=== PATIENT | female | born 1995 | race Caucasian/White ===

== ENCOUNTER 2016-10-15 15:19 | Emergency (ER) | payer OTHER ==
[2016-10-15 15:33] VITALS: BP 161/106; PULSE 117; TEMP 99.1; BMI 44.4
[2016-10-15] MEDS ORDERED: ALBUTEROL SO4 2.5/IPRATROPIUM 0.5 INH SOL 3 ML VIAL.NEB. NEB ONE ×2 (16:10→16:24)
[2016-10-15] MEDS ORDERED: IBUPROFEN 400 MG TABLET (FP) PO ONE ×2 (16:24→16:29)
[2016-10-15] MEDS ORDERED: predniSONE 20 MG TABLET (UD) PO ONE (16:24)
[2016-10-15] MEDS ORDERED: predniSONE 20 MG TABLET (UD) ONE (16:29)
--- NOTE | 2016-10-15 16:38 | PDOC ---
History of Present Illness - General Chief Complaint: Asthma Stated Complaint: ASTHMA ATTACK Time Seen by Provider: 10/15/16 16:17 History Source: Patient Exam Limitations: No Limitations - History of Present Illness Initial Comments: 10/15/16 16:27 21 yr female history of asthma no intubations or hospitalizations presents with cough for one week, nasal congestion. no abd pain no fever. Pt using nebulizer at home. Severity: reports: moderate Possible Cause: Yes: occasional episodes Associated Symptoms: reports: cough, nasal congestion Past History - Past Medical History Allergies/Adverse Reactions: Allergies Allergy/AdvReac Type Severity Reaction Status Date / Time ciprofloxacin [From Cipro] Allergy Severe Hives Verified 10/15/16 15:26 ciprofloxacin HCl Allergy Severe Hives Verified 10/15/16 15:26 [From Cipro] Penicillins Allergy Severe Verified 10/15/16 15:26 Home Medications: Ambulatory Orders Albuterol Sulfate Inhaler - [Ventolin Hfa Inhaler -] 1 - 2 inh PO Q4H #1 inhaler 10/15/16 Azithromycin [Zithromax 250mg Tablets -] 250 mg PO UTDICT #6 tab 10/15/16 Prednisone [Deltasone -] 40 mg PO DAILY #10 tablet 10/15/16 Asthma: Yes Psychiatric Problems: Yes (ANXIETY) Suicide Attempt (Hx): No Other medical history: obesity - Reproductive History (#): 2 Para: 0 Cervical CA: No Dysfunctional Uterine Bleeding: No Ectopic : No Endometrial CA: No Polycystic Ovaries: No Therapeutic (s) & number: Yes (1) Tubal Ligation: No Spontaneous : 0 - Immunization History Immunization Up to Date: Yes - Psycho/Social/Smoking Cessation Hx Anxiety: Yes Suicidal Ideation: No Smoking Status: No Smoking History: Never smoked Have you smoked in the past 12 months: No Hx Alcohol Use: No Substance Use Type: None Hx Substance Use Treatment: No Respiratory Specific PMHX - Complaint Specific PMHX Angina: No Bronchitis: Yes Review of Systems - Review of Systems Able to Perform ROS?: Yes Is the patient limited Thai proficient: No Constitutional: No: Symptoms Reported HEENTM: Yes: See HPI Respiratory: Yes: See HPI *Physical Exam - Vital Signs Last Vital Signs Temp Pulse Resp BP Pulse Ox 99.1 F 117 H 25 H 161/106 98 10/15/16 15:26 10/15/16 15:26 10/15/16 15:26 10/15/16 15:26 10/15/16 15:26 - Physical Exam General Appearance: Yes: Nourished, Appropriately Dressed HEENT: positive: EOMI, JANEL, Normal ENT Inspection, TMs Normal, Pharynx Normal, Nasal Congestion Neck: positive: Supple Respiratory/Chest: positive: Chest Tender, Normal Breath Sounds, Wheezing Cardiovascular: positive: Regular Rhythm, Regular Rate Gastrointestinal/Abdominal: positive: Normal Bowel Sounds, Soft Musculoskeletal: positive: Normal Inspection Extremity: positive: Normal Capillary Refill, Normal Inspection, Normal Range of Motion Integumentary: positive: Normal Color, Dry, Warm ED Treatment Course - Medications Given in the ED: ED Medications Discontinued Medications Generic Name Dose Route Start Last Admin Trade Name Gloria PRN Reason Stop Dose Admin Albuterol/Ipratropium 1 amp 10/15/16 16:10 10/15/16 16:10 Duoneb - NEB 10/15/16 16:11 1 amp NOW ONE Administration Medical Decision Making - Medical Decision Making 10/15/16 16:39 cc: cough, wheezing, nasal congestion afebrile, speaking full sentences anxious will give prednisone, duoneb, albuterol inhaler 10/15/16 18:44 pt improved, CXR is negative vitals stable BP 128/78 left arm *DC/Admit/Observation/Transfer Diagnosis at time of Disposition: Asthma attack, Bronchitis - Discharge Dispostion Disposition: HOME Condition at time of disposition: Improved - Prescriptions Prescriptions: Prednisone [Deltasone -] 40 mg PO DAILY #10 tablet Albuterol Sulfate Inhaler - [Ventolin Hfa Inhaler -] 1 - 2 inh PO Q4H #1 inhaler Azithromycin [Zithromax 250mg Tablets -] 250 mg PO UTDICT #6 tab - Patient Instructions Additional Instructions: drink pleanty of fluids and rest use your inhaler as directed next dose of prednisone tomorrow morning take the Zpack as directed take motrin for pain follow with your doctor Tomorrow or Wednesday Return to ER if worse
== END 2016-10-15 18:51 | disposition home or self-care (01) ==
LOC: JER 15:19 → JERFT 15:19
PROC: 3E0F7GC Introduction of Other Therapeutic Substance into Respiratory Tract, Via Natural or Artificial Opening (ICD-10-PCS; principal; 2016-10-15)
DX: J45.901 Unspecified asthma with (acute) exacerbation (principal); F41.9 Anxiety disorder, unspecified; E66.01 Morbid (severe) obesity due to excess calories; Z68.41 Body mass index [BMI] 40.0-44.9, adult
CPT/HCPCS: 71020-TC; 84703; 99281-25

== ENCOUNTER 2017-08-29 12:48 | Emergency (ER) | payer OTHER ==
--- NOTE | 2017-08-29 12:57 | PDOC ---
History of Present Illness - General Chief Complaint: Asthma Stated Complaint: ASTHMA Time Seen by Provider: 08/29/17 12:57 - History of Present Illness Initial Comments: 08/29/17 13:04 Ms. Aguirre is a 22 yo female w/ pmh of Asthma who presents c/o a 1 day history of difficulty breathing. She reports it was slow in onset and that she had initially tried her rescue inhaler and home nebulizer for treatment last night with little effect. She presents because her boyfriend convinced her to call 911 as she was still symptomatic today. She denies any pain, fever, chills, or sick contacts. She currently has a headache she associates w/ her asthma attacks. EMS reports giving 2 breathing treatments and 10 IM Dexamethasone while en route to the hospital. The patient denies chest pain and dizziness. Denies fever, chills, nausea, vomit , diarrhea and constipation. Denies dysuria, frequency, urgency and hematuria. Allergies: Penicillins 08/29/17 13:13 Past History - Past Medical History Allergies/Adverse Reactions: Allergies Allergy/AdvReac Type Severity Reaction Status Date / Time ciprofloxacin [From Cipro] Allergy Severe Hives Verified 08/29/17 12:56 ciprofloxacin HCl Allergy Severe Hives Verified 08/29/17 12:56 [From Cipro] Penicillins Allergy Severe Verified 08/29/17 12:56 Home Medications: Ambulatory Orders Albuterol Sulfate Inhaler - [Ventolin Hfa Inhaler -] 1 - 2 inh PO Q4H #1 inhaler 10/15/16 Albuterol 0.083% Nebulizer Ritika [Ventolin 0.083% Nebulizer Soln -] 1 amp NEB PRN 08/29/17 Prednisone 40 mg PO DAILY #16 tablet 08/29/17 Prednisone [Deltasone -] 0 mg PO DAILY 08/29/17 Asthma: Yes Psychiatric Problems: Yes (ANXIETY) - Reproductive History (#): 2 Para: 0 Cervical CA: No Dysfunctional Uterine Bleeding: No Ectopic : No Endometrial CA: No Polycystic Ovaries: No Therapeutic (s) & number: Yes (1) Tubal Ligation: No Spontaneous : 0 - Immunization History Immunization Up to Date: Yes - Suicide/Smoking/Psychosocial Hx Smoking Status: No Smoking History: Never smoked Have you smoked in the past 12 months: No Hx Alcohol Use: No Substance Use Type: None Hx Substance Use Treatment: No Review of Systems - Review of Systems Comments:: 08/29/17 13:11 GENERAL/CONSTITUTIONAL: No fever or chills. No weakness. HEAD, EYES, EARS, NOSE AND THROAT: No change in vision. No ear pain or discharge. No sore throat. CARDIOVASCULAR: No chest pain or shortness of breath RESPIRATORY: +Cough and wheezing for the last 24 hours GASTROINTESTINAL: No nausea, vomiting, diarrhea or constipation. GENITOURINARY: No dysuria, frequency, or change in urination. MUSCULOSKELETAL: No joint or muscle swelling or pain. No neck or back pain. SKIN: No rash NEUROLOGIC: No headache, vertigo, loss of consciousness, or change in strength/ sensation. ENDOCRINE: No increased thirst. No abnormal weight change HEMATOLOGIC/LYMPHATIC: No anemia, easy bleeding, or history of blood clots. ALLERGIC/IMMUNOLOGIC: +Eczema on arms *Physical Exam - Physical Exam Comments: 08/29/17 13:12 GENERAL: +Significant work of breathing observed on presentation. Awake, alert, and fully oriented HEAD: No signs of trauma, normocephalic, atraumatic EYES: PERRLA, EOMI, sclera anicteric, conjunctiva clear ENT: Auricles normal inspection, hearing grossly normal, nares patent, oropharynx clear without exudates. Moist mucosa NECK: Normal ROM, supple, no lymphadenopathy, JVD, or masses LUNGS: +Diffuse wheezes noted, patient breathing quickly. HEART: Regular rate and rhythm, normal S1 and S2, no murmurs, rubs or gallops, peripheral pulses normal and equal bilaterally. ABDOMEN: Soft, nontender, normoactive bowel sounds. No guarding, no rebound. No masses EXTREMITIES: Normal inspection, Normal range of motion, no edema. No clubbing or cyanosis. NEUROLOGICAL: Cranial nerves II through XII grossly intact. Normal speech, normal gait, no focal sensorimotor deficits SKIN: Warm, Dry, normal turgor, no rashes or lesions noted. ED Treatment Course - LABORATORY CBC & Chemistry Diagram: 08/29/17 13:50 08/29/17 13:50 Medical Decision Making - Medical Decision Making 08/29/17 13:14 Patient presents with acute asthma exacerbation. Given EMS IM administration of dexamethosone, order for IV Solumedrol canceled. Will treat with mag and duo nebs and observe for improvement. 08/29/17 16:13 Patient wheezing resolved on re-exam, patient peak flow increased to 325. Patient feeling much improved and able to ambulate without difficulty. Would like to go home. Will discharge with instructions to follow-up with PCP in 2 days. Will also proscribe prednisone for asthma exacerbation. *DC/Admit/Observation/Transfer Diagnosis at time of Disposition: Asthma exacerbation Qualifiers: Asthma severity: unspecified severity Asthma persistence: unspecified Qualified Code(s): J45.901 - Unspecified asthma with (acute) exacerbation - Discharge Dispostion Disposition: HOME - Referrals - Patient Instructions Printed Discharge Instructions: Asthma -- Adult Additional Instructions: Please return if any increase shortness of breath, pain, fever, or other concerning symptoms. - Post Discharge Activity
[2017-08-29] MEDS ORDERED: methylPREDNISolone NA SUCC 125 MG/2 ML VIAL IVPUSH ONE (12:58)
[2017-08-29] MEDS ORDERED: ONDANSETRON 4 MG/2 ML VIAL IVPUSH ONE (12:58)
[2017-08-29] MEDS ORDERED: MAGNESIUM SULF 50% (8.12 MEQ/2 ML-1 GM VIAL) IVPB ONE (13:04)
[2017-08-29 13:05] VITALS: BMI 52.4
[2017-08-29] MEDS ORDERED: ALBUTEROL SO4 2.5/IPRATROPIUM 0.5 INH SOL 3 ML VIAL.NEB. NEB ONE ×2 (13:29→14:49)
[2017-08-29] MEDS ORDERED: ONDANSETRON 4 MG/2 ML VIAL ONE (13:29)
[2017-08-29] MEDS ORDERED: MAGNESIUM SULF 50% (8.12 MEQ/2 ML-1 GM VIAL) ONE (13:29)
[2017-08-29] MEDS: ALBUTEROL SO4 2.5/IPRATROPIUM 0.5 INH SOL 3 ML VIAL.NEB. NEB SCH ×4 (13:35→14:51)
[2017-08-29] MEDS ORDERED: SODIUM CHLORIDE 1,000 ML IV STA (14:10)
[2017-08-29 14:12] LABS: BASOPHIL 0.7 % (0-2.0); EOSINOPHIL 0.6 % (0-4.5); MCH 26.6 pg (25.7-33.7); MEAN CELL VOLUME 83.1 fl (80-96); MEAN PLT VOLUME 7.9 fl (7.5-11.1); NEUTROPHILS 82.8 % (42.8-82.8); PLATELET COUNT 402 K/MM3 (134-434); RDW 14.7 % (11.6-15.6); WHITE BLOOD COUNT 13.2 K/mm3 (4.0-10.0)
[2017-08-29 14:33] LABS: ALBUMIN 3.8 g/dl (3.4-5.0); ALK PHOS 98 U/L (45-117); ANION GAP 7 (8-16); BILIRUBIN,TOTAL 0.2 mg/dL (0.2-1.0); CALCIUM 8.8 mg/dL (8.5-10.1); CO2 27 mmol/L (21-32); CREATININE 0.7 mg/dL (0.55-1.02); GLUCOSE,RANDOM 126 mg/dL (74-106); SGOT/AST 21 U/L (15-37); SGPT/ALT 33 U/L (12-78); TOT PROT 7.5 g/dl (6.4-8.2)
--- NOTE | 2017-08-29 14:59 | PDOC ---
Attending Attestation - Resident Resident Name: Lalo López - ED Attending Attestation I have performed the following: I have examined & evaluated the patient, The case was reviewed & discussed with the resident, I agree w/resident's findings & plan, Exceptions are as noted - HPI HPI: 08/29/17 14:57 22-year-old female with a history of asthma exacerbations in many years here today complaining of shortness breath cough and wheezing. Patient states her symptoms started a few days ago became worse today she did use albuterol at home and then became nauseous and threw up following. No complaints of abdominal pain no fevers chills no cough productive of phlegm was seen by EMS and given Decadron, DuoNeb 2 with some improvement. No prior ICU or intubations - Physicial Exam PE: 08/29/17 14:58 Awake alert no acute distress lungs are with wheezing bilaterally on expiration but normal effort no retractions no excessive muscle use abdomen is soft nontender. Skin is warm and dry extremities are without edema no calf pain - Medical Decision Making 08/29/17 14:58 Asthma exacerbation vomiting likely related to albuterol use plan serial nebs labs IV hydration and antiemetics will reassess for possible admission versus observation versus home
[2017-08-29 15:00] VITALS: TEMP 97.4
[2017-08-29 15:24] LABS: URINE APPEARANCE CLOUDY; URINE BILIRUBIN NEGATIVE (NEGATIVE); URINE BLOOD NEGATIVE (NEGATIVE); URINE COLOR YELLOW; URINE GLUCOSE (UA) NEGATIVE (NEGATIVE); URINE KETONE NEGATIVE (NEGATIVE); URINE LEUK ESTERASE NEGATIVE (NEGATIVE); URINE NITRITE NEGATIVE (NEGATIVE); URINE PROTEIN NEGATIVE (NEGATIVE); URINE UROBILINOGEN NEGATIVE mg/dL (0.2-1.0)
[2017-08-29 16:50] VITALS: BP 129/71; PULSE 115
[2017-08-29 20:58] LABS: URINE LEUK ESTERASE NEGATIVE (NEGATIVE)
== END 2017-08-29 16:49 | disposition home or self-care (01) ==
LOC: JER 12:48
PROC: 3E0F7GC Introduction of Other Therapeutic Substance into Respiratory Tract, Via Natural or Artificial Opening (ICD-10-PCS; principal; 2017-08-29)
PROC: 3E033GC Introduction of Other Therapeutic Substance into Peripheral Vein, Percutaneous Approach (ICD-10-PCS; 2017-08-29)
PROC: 3E0337Z Introduction of Electrolytic and Water Balance Substance into Peripheral Vein, Percutaneous Approach (ICD-10-PCS; 2017-08-29)
DX: J45.901 Unspecified asthma with (acute) exacerbation (principal)
CPT/HCPCS: 36415; 80053; 81003; 84703; 85025; 99283-25

== ENCOUNTER 2017-11-22 17:12 | Emergency (ER) | payer OTHER ==
[2017-11-22 17:25] VITALS: BP 143/85; PULSE 129; TEMP 99; BMI 45.4
--- NOTE | 2017-11-22 17:25 | PDOC ---
Rapid Medical Evaluation Time Seen by Provider: 11/22/17 17:20 Medical Evaluation: Allergies Allergy/AdvReac Type Severity Reaction Status Date / Time ciprofloxacin [From Cipro] Allergy Severe Hives Verified 11/22/17 17:20 ciprofloxacin HCl Allergy Severe Hives Verified 11/22/17 17:20 [From Cipro] Penicillins Allergy Severe Verified 11/22/17 17:20 11/22/17 17:21 I have performed a brief in-person evaluation of this patient. The patient presents with a chief complaint of shortness of breath since yesterday, with productive cough. States bringing up yellowish phelgm. States using her nebulizer 7 times since then and recently completed prednisone 2-3 weeks ago. Denies fever or chills Pertinent physical exam findings NAD speech clear lungs with expiratory wheezing heart s1s2 I have ordered the following: peak flow, duoneb urine hcg The patient will proceed to the ED for further evaluation.
[2017-11-22] MEDS ORDERED: ALBUTEROL SO4 2.5/IPRATROPIUM 0.5 INH SOL 3 ML VIAL.NEB. NEB ONE ×3 (17:26→19:01)
[2017-11-22] MEDS ORDERED: predniSONE 20 MG TABLET (UD) PO ONE (17:54)
--- NOTE | 2017-11-22 17:54 | PDOC ---
History of Present Illness - General Chief Complaint: Asthma Stated Complaint: ASTHMA Time Seen by Provider: 11/22/17 17:20 History Source: Patient Exam Limitations: No Limitations - History of Present Illness Initial Comments: CHIEF COMPLAINT: 22 y/o afebrile female with PMH asthma and eczema (prior hospitalizations but no intubations) c/o worsening asthma symptoms since yesterday. HISTORY OF PRESENT ILLNESS: The patient states she's been using her albuterol nebulizer about 10 times per day since yesterday with little relief. She also admits to productive cough of yellow sputum. She denies f/c, n/v/d, CP, abd pain, back pain, hematuria, dysuria. Vital signs on arrival are notable for pulse of 129 with O2 sat of 95% on RA. REVIEW OF SYSTEMS: GENERAL/CONSTITUTIONAL: No fever/chills. No weakness. No weight change. HEAD, EYES, EARS, NOSE AND THROAT: No change in vision. No ear pain or discharge. No sore throat. CARDIOVASCULAR: +SOB. No chest pain. RESPIRATORY: +productive cough and wheezing. No hemoptysis. GASTROINTESTINAL: No abd pain, nausea, vomiting, diarrhea. GENITOURINARY: No dysuria, frequency, or change in urination. MUSCULOSKELETAL: No joint or muscle swelling or pain. No neck or back pain. SKIN: No rash or easy bruising. NEUROLOGIC: No headache, vertigo, loss of consciousness, or loss of sensation. PHYSICAL EXAM: GENERAL: The patient is awake, alert, and fully oriented, in no acute distress. She is well appearing and ambulatory and can speak in full sentences. HEAD: Normal with no signs of trauma. ENT: Pupils equal, round and reactive to light, extraocular movements intact, sclera anicteric, conjunctiva clear. Neck supple. LUNGS: Diffuse tight expiratory wheezing across all lung bui. . Normal excursion. No respiratory distress or use of accessory muscles. CV: RRR, S1/S2, no MRG. Cap refill < 2 sec. ABDOMEN: Soft, non-distended, non-tender even to deep palpation, no hepatomegaly or splenomegaly, no masses. EXTREMITIES: Normal range of motion, no edema. NEUROLOGICAL: Normal speech, normal gait. CN II-XII grossly intact. PSYCH: Normal mood, normal affect. SKIN: Warm, dry, normal turgor, no rashes or lesions noted. Past History - Past Medical History Allergies/Adverse Reactions: Allergies Allergy/AdvReac Type Severity Reaction Status Date / Time ciprofloxacin [From Cipro] Allergy Severe Hives Verified 11/22/17 17:20 ciprofloxacin HCl Allergy Severe Hives Verified 11/22/17 17:20 [From Cipro] Penicillins Allergy Severe Verified 11/22/17 17:20 Home Medications: Ambulatory Orders Methylprednisolone [Medrol Dose Martin] 4 mg PO ASDIR #21 tablet 11/22/17 Asthma: Yes COPD: No Psychiatric Problems: Yes (ANXIETY) Other medical history: ECZEMA - Reproductive History (#): 2 Para: 0 Cervical CA: No Dysfunctional Uterine Bleeding: No Ectopic : No Endometrial CA: No Polycystic Ovaries: No Therapeutic (s) & number: Yes (1) Tubal Ligation: No Spontaneous : 0 - Immunization History Immunization Up to Date: Yes - Suicide/Smoking/Psychosocial Hx Smoking Status: No Smoking History: Never smoked Have you smoked in the past 12 months: No Hx Alcohol Use: No Drug/Substance Use Hx: No Substance Use Type: None Hx Substance Use Treatment: No Respiratory Specific PMHX - Complaint Specific PMHX Angina: No Bronchitis: Yes *Physical Exam - Vital Signs Last Vital Signs Temp Pulse Resp BP Pulse Ox 99 F 129 H 24 143/85 95 11/22/17 17:20 11/22/17 17:20 11/22/17 17:20 11/22/17 17:20 11/22/17 17:20 ED Treatment Course - Medications Given in the ED: ED Medications Discontinued Medications Generic Name Dose Route Start Last Admin Trade Name Freq PRN Reason Stop Dose Admin Albuterol/Ipratropium 1 amp 11/22/17 17:26 11/22/17 17:28 Duoneb - NEB 11/22/17 17:27 1 amp ONCE ONE Administration Medical Decision Making - Medical Decision Making A/P: 22 y/o female with worsening asthma exacerbation since yesterday. Plan is as follows: 1. Duoneb x 3 2. PO prednisone 3. CXR 4. hcg hcg - negative CXR IMPRESSION: Discoid atelectasis right lung base. No consolidation or pleural effusion. The patient states she feels much better after nebs and her lungs are now CTA. Will d/c to home with rx for medrol dose pack. Instructed her to f/u with her doctor this week and return to the ER immediately with any worsening or concerning symptoms. The patient verbalizes understanding of all instructions, has no further questions and is awaiting discharge. *DC/Admit/Observation/Transfer Diagnosis at time of Disposition: Asthma exacerbation Qualifiers: Asthma severity: unspecified severity Asthma persistence: unspecified Qualified Code(s): J45.901 - Unspecified asthma with (acute) exacerbation - Discharge Dispostion Disposition: HOME Condition at time of disposition: Improved - Prescriptions Prescriptions: Methylprednisolone [Medrol Dose Martin] 4 mg PO ASDIR #21 tablet - Referrals Referrals: Benjamin Marquez MD [Primary Care Provider] - Call tomorrow - Patient Instructions Printed Discharge Instructions: Asthma -- Adult Additional Instructions: Discharge Instructions: -A prescription for steroids has been sent to your pharmacy; please take as prescribed -Take your albuterol nebulizer every 4 hours if symptomatic -Follow up with your doctor within 1 week -Return to the ER immediately with any worsening or concerning symptoms - Post Discharge Activity
[2017-11-22] MEDS ORDERED: predniSONE 20 MG TABLET (UD) ONE (17:57)
[2017-11-22] MEDS: ALBUTEROL SO4 2.5/IPRATROPIUM 0.5 INH SOL 3 ML VIAL.NEB. NEB SCH ×4 (17:58→19:10)
== END 2017-11-22 19:40 | disposition home or self-care (01) ==
LOC: JERFT 17:12
PROC: 3E0F7GC Introduction of Other Therapeutic Substance into Respiratory Tract, Via Natural or Artificial Opening (ICD-10-PCS; principal; 2017-11-22)
DX: Z88.0 Allergy status to penicillin (principal); Z88.1 Allergy status to other antibiotic agents
CPT/HCPCS: 71046-TC-FY; 84703; 99281-25

== ENCOUNTER 2018-01-05 06:49 | Emergency (ER) | payer OTHER ==
--- NOTE | 2018-01-05 07:21 | PDOC ---
History of Present Illness - General Chief Complaint: Respiratory Stated Complaint: NAUSEA History Source: Patient Exam Limitations: No Limitations - History of Present Illness Initial Comments: 01/05/18 07:34 HPI: This 22 yr old female with c/o wheezing and asthma tightness with bouts of nausea and bringing up yellow phlegm. she was using her nebulizer 6-7 times a day including her inhaler. She has been having this bout for one week. She was seen in early November here and was treated with steroids for the similar episode. she has no pulmonary physcian or has not seen her PCP in a while. she does not have a asthma daily treatment plan. She denies fever, pain. Chief Compliant:sob, wheezing PMH: asthma, anxiety FH: Pt has not recently traveled outside the country in the last 30 days. Pt has not been in contact with people who have traveled out of the country, in contact with people who have been ill with fever, n, v, d. SH: smoking use: NONE illicit drug use: NONE alcohol use: NONE PSH: Home med use noted on NOV Allergies:cipro, PCN Immunizations: PCP: Dr. Marquez CORPORATE COUNSELOR: LMP: some time in beginning of month. G P : Past History - Past Medical History Allergies/Adverse Reactions: Allergies Allergy/AdvReac Type Severity Reaction Status Date / Time ciprofloxacin [From Cipro] Allergy Severe Hives Verified 01/05/18 07:17 ciprofloxacin HCl Allergy Severe Hives Verified 01/05/18 07:17 [From Cipro] Penicillins Allergy Severe Verified 01/05/18 07:17 Home Medications: Ambulatory Orders Albuterol Sulfate [Proair Hfa] 8.5 gm IH Q4H #1 hfa.aer.ad 01/05/18 Methylprednisolone [Medrol Dose Martin] 4 mg PO ASDIR #21 tablet 01/05/18 Asthma: Yes COPD: No Psychiatric Problems: Yes (ANXIETY) - Reproductive History (#): 2 Para: 0 Cervical CA: No Dysfunctional Uterine Bleeding: No Ectopic : No Endometrial CA: No Polycystic Ovaries: No Therapeutic (s) & number: Yes (1) Tubal Ligation: No Spontaneous : 0 - Immunization History Immunization Up to Date: Yes - Suicide/Smoking/Psychosocial Hx Smoking Status: No Smoking History: Never smoked Have you smoked in the past 12 months: No Hx Alcohol Use: No Drug/Substance Use Hx: No Substance Use Type: None Hx Substance Use Treatment: No Review of Systems - Review of Systems Able to Perform ROS?: Yes Comments:: 01/05/18 07:40 General statement: Feels SOB, wheezing, nausea Hematology: neg history of bleeding/blood thinners Skin: Neg for lesions, rash, bruising. HEENT: Neg symptoms Respiratory: + SOB - difficulty in breathing + wheezing Cardiac: Neg chest pain GI: Neg pain, + nausea : Neg problems on voiding MS: Neg for joint pain/stiffness, no edema Neuro: Neg for LOC, weakness, Endocrine: Neg for excess thirst/hunger, cold/heat intolerance, excess sweating Allergies: + for allergies *Physical Exam - Physical Exam Comments: 01/05/18 07:41 General Appearance: This well appearing obese female V/S: hemodynamically stable, afebrile Skin: WNL of pt's skin color, no signs of pallor, mottling, cyanosis Head:symmetrical Eyes: EOM's intact, PERRLA Ears: denies pain Nose: patent Throat: lips, teeth, gums, tongue, buccal mucos pink and moist Lungs: Chest symmetry equal. Cap refill <3 seconds. Lung sounds with wheezing on through out upper lung bui, more on right upper side. Cardiac: PMI at R 4MCL space, pos S1 and S2, regular rate. Abdomen: Soft, round, nontender : Not observed Muscularskeletal: Gait steady, ambulated in to ER, no edema +PMS Neuro: AAOx3, cognitively intact, speech clear and appropriate. Medical Decision Making - Medical Decision Making 01/05/18 07:42 A/P: 22 yr old female with wheezing, c/o nausea for one week with asthma exacerbation mild currently -CXR -ua/hcg -ivf, zofran, zantac, duoneb, solumedrol 01/05/18 15:27 feeling much better and was discharged earlier today with medorol dose pack *DC/Admit/Observation/Transfer Diagnosis at time of Disposition: Asthma attack - Discharge Dispostion Disposition: HOME Condition at time of disposition: Good Admit: No - Prescriptions Prescriptions: Albuterol Sulfate [Proair Hfa] 8.5 gm IH Q4H #1 hfa.aer.ad Methylprednisolone [Medrol Dose Martin] 4 mg PO ASDIR #21 tablet - Referrals Referrals: Benjamin Marquez MD [Primary Care Provider] - - Patient Instructions Printed Discharge Instructions: DI for Asthma -- Adult Additional Instructions: Discharge instructions 1. Please follow up with your primary physician within the next few days and explain that you have been seen here in the Emergency Room. 2. If you experience any worsening of symptoms, please return to the ER 3. Rest 4. Drink plenty of water - Post Discharge Activity Forms/Work/School Notes: Back to Work
[2018-01-05 07:23] VITALS: TEMP 97.5; BMI 47.6
[2018-01-05] MEDS ORDERED: methylPREDNISolone NA SUCC 125 MG/2 ML VIAL IVPB ONE (07:30)
[2018-01-05] MEDS ORDERED: SODIUM CHLORIDE 1,000 ML IV STA (07:30)
[2018-01-05] MEDS ORDERED: ONDANSETRON 4 MG/2 ML VIAL IVPUSH ONE (07:30)
[2018-01-05] MEDS ORDERED: RANITIDINE HCL 150 MG TABLET (FP) PO ONE (07:31)
[2018-01-05] MEDS ORDERED: ALBUTEROL SO4 2.5/IPRATROPIUM 0.5 INH SOL 3 ML VIAL.NEB. NEB ONE ×3 (07:31→08:38)
[2018-01-05 07:50] LABS: URINE APPEARANCE SLCLOUDY; URINE BILIRUBIN NEGATIVE (<2.0 mg/dL); URINE BLOOD NEGATIVE (NEGATIVE); URINE COLOR YELLOW; URINE GLUCOSE (UA) NEGATIVE (NEGATIVE); URINE KETONE NEGATIVE (NEGATIVE); URINE LEUK ESTERASE TRACE (NEGATIVE); URINE NITRITE NEGATIVE (NEGATIVE); URINE PROTEIN NEGATIVE (NEGATIVE); URINE UROBILINOGEN NEGATIVE mg/dL (0.2-1.0)
[2018-01-05 07:53] LABS: HCG,QUALITATIVE URINE NEGATIVE
[2018-01-05 07:55] LABS: EPI CELLS FEW /HPF (FEW); URINE BACTERIA RARE /hpf (NONE SEEN); URINE MUCUS RARE
[2018-01-05] MEDS ORDERED: RANITIDINE HCL 150 MG TABLET (FP) ONE (08:21)
[2018-01-05] MEDS ORDERED: ONDANSETRON 4 MG/2 ML VIAL ONE (08:21)
[2018-01-05] MEDS ORDERED: methylPREDNISolone NA SUCC 125 MG/2 ML VIAL ONE (08:21)
--- NOTE | 2018-01-05 08:28 | PDOC ---
*Physical Exam - Vital Signs Last Vital Signs Temp Pulse Resp BP Pulse Ox 97.5 F L 95 H 18 147/95 98 01/05/18 07:00 01/05/18 07:00 01/05/18 07:00 01/05/18 07:00 01/05/18 07:00 - Physical Exam Comments: 01/05/18 08:28 The patient was examined by DORINDA Najera] under my direct supervision. I personally evaluated the patient. I concur with the above findings and the plan of care. ED Treatment Course - ADDITIONAL ORDERS Additional order review: Laboratory Results 01/05/18 07:42 Urine Color Yellow Urine Appearance Slcloudy Urine pH 5.0 Ur Specific [place] 1.027 Urine Protein Negative Urine Glucose (UA) Negative Urine Ketones Negative Urine Blood Negative Urine Nitrite Negative Urine Bilirubin Negative Urine Urobilinogen Negative Ur Leukocyte Esterase Trace Urine WBC (Auto) 2 Urine RBC (Auto) 1 Ur Epithelial Cells Few Urine Bacteria Rare Urine Mucus Rare Urine HCG, Qual Negative *DC/Admit/Observation/Transfer - Referrals Referrals: Benjamin Marquez MD [Primary Care Provider] - - Patient Instructions - Post Discharge Activity
[2018-01-05 09:59] VITALS: BP 134/94; PULSE 80
== END 2018-01-05 09:59 | disposition home or self-care (01) ==
LOC: JER 06:49
PROC: 3E0337Z Introduction of Electrolytic and Water Balance Substance into Peripheral Vein, Percutaneous Approach (ICD-10-PCS; principal; 2018-01-05)
PROC: 3E033GC Introduction of Other Therapeutic Substance into Peripheral Vein, Percutaneous Approach (ICD-10-PCS; 2018-01-05)
PROC: 3E0F7GC Introduction of Other Therapeutic Substance into Respiratory Tract, Via Natural or Artificial Opening (ICD-10-PCS; 2018-01-05)
DX: J45.901 Unspecified asthma with (acute) exacerbation (principal)
CPT/HCPCS: 71046-TC-FY; 81003; 81015; 84703; 99283-25; J7030

== ENCOUNTER 2019-01-24 10:05 | Emergency (ER) | payer OTHER ==
[2019-01-24 10:10] VITALS: TEMP 98; BMI 46.4
--- NOTE | 2019-01-24 10:15 | PDOC ---
Attending Attestation - Resident Resident Name: Lalo López - HPI HPI: 01/24/19 11:17 Pt presents to the ED complaining of wheezing and shortness of breath consistent with, but worse than, her chronic asthma. Patient has a long standing history of asthma with multiple exacerbations and hospitalizations. Just finished a three week course of prednisone. Denies fever or productive cough. - Physicial Exam PE: 01/24/19 11:19 Agree with resident exam. Patient is alert and oriented and in no acute distress. Speaking in complete sentences without acessory muscle use. + expiratory wheezes bilaterally. - Medical Decision Making 01/24/19 11:20 Pt presents to the ED complaining of wheezing and shortness of breath consistent with prior asthma exacerbations. Will treat with nebs and steroids and reassess.
[2019-01-24] MEDS ORDERED: ALBUTEROL SO4 2.5/IPRATROPIUM 0.5 INH SOL 3 ML VIAL.NEB. NEB ONE ×2 (10:18→10:51)
--- NOTE | 2019-01-24 10:22 | PDOC ---
History of Present Illness - General Chief Complaint: Asthma Stated Complaint: ASTHMA Time Seen by Provider: 01/24/19 10:15 - History of Present Illness Initial Comments: 01/24/19 10:15 Ms. Aguirre is a 23 yo female w/ pmh of asthma (has required hospitalization in the past but never intubated, last in May 2018 to ICU), who presents for evaluation of 1 day history of shortness of breath and wheezing. Patient reports she has some congestion and shortness of breath upon waking up yesterday. Used nebulizer 7 times yesterday however presents today as she ran out of her nebulizer treatments. Endorses chest pain with deep breath at this time. No recent travel. The patient denies headache and dizziness. Denies fever, chills, nausea, vomit, diarrhea and constipation. Denies dysuria, frequency, urgency and hematuria. Past History - Past Medical History Allergies/Adverse Reactions: Allergies Allergy/AdvReac Type Severity Reaction Status Date / Time ciprofloxacin [From Cipro] Allergy Severe Hives Verified 05/29/18 00:17 ciprofloxacin HCl Allergy Severe Hives Verified 05/29/18 00:17 [From Cipro] Penicillins Allergy Severe Verified 05/29/18 00:17 Home Medications: Ambulatory Orders Albuterol Sulfate [Proair Hfa] 8.5 gm IH Q4H #1 hfa.aer.[email or web address] 01/05/18 Albuterol Sulfate Inhaler - [Ventolin HFA Inhaler -] 1 - 2 inh PO Q4H PRN #1 inhaler 05/30/18 Budesonide/Formeterol Fumarate [SYMBICORT 160/4.5mcg -] 2 puff IH BID #1 inhaler 05/30/18 Prednisone See Taper PO DAILY #23 tablet 05/30/18 Asthma: Yes COPD: No Psychiatric Problems: Yes (ANXIETY) - Reproductive History (#): 2 Para: 0 Cervical CA: No Dysfunctional Uterine Bleeding: No Ectopic : No Endometrial CA: No Polycystic Ovaries: No Therapeutic (s) & number: Yes (1) Tubal Ligation: No Spontaneous : 0 - Immunization History Immunization Up to Date: Yes - Suicide/Smoking/Psychosocial Hx Smoking Status: No Smoking History: Never smoked Have you smoked in the past 12 months: No Hx Alcohol Use: No Drug/Substance Use Hx: No Substance Use Type: None Hx Substance Use Treatment: No Review of Systems - Review of Systems Comments:: 01/24/19 10:26 GENERAL/CONSTITUTIONAL: No fever or chills. No weakness. HEAD, EYES, EARS, NOSE AND THROAT: No change in vision. No ear pain or discharge. No sore throat. CARDIOVASCULAR: +SOB w/ chest pain upon deep inspiration RESPIRATORY: No cough, wheezing, or hemoptysis. GASTROINTESTINAL: No nausea, vomiting, diarrhea or constipation. GENITOURINARY: No dysuria, frequency, or change in urination. MUSCULOSKELETAL: No joint or muscle swelling or pain. No neck or back pain. SKIN: No rash NEUROLOGIC: No headache, vertigo, loss of consciousness, or change in strength/ sensation. ENDOCRINE: No increased thirst. No abnormal weight change HEMATOLOGIC/LYMPHATIC: No anemia, easy bleeding, or history of blood clots. ALLERGIC/IMMUNOLOGIC: No hives or skin allergy. *Physical Exam - Vital Signs Last Vital Signs Temp Pulse Resp BP Pulse Ox 98.0 F 80 18 142/97 96 01/24/19 10:08 01/24/19 10:08 01/24/19 10:08 01/24/19 10:08 01/24/19 10:08 - Physical Exam Comments: 01/24/19 10:26 GENERAL: Awake, alert, and fully oriented, in no acute distress HEAD: No signs of trauma, normocephalic, atraumatic EYES: PERRLA, EOMI, sclera anicteric, conjunctiva clear ENT: Auricles normal inspection, hearing grossly normal, nares patent, oropharynx clear without exudates. Moist mucosa NECK: Normal ROM, supple, no lymphadenopathy, JVD, or masses LUNGS: +End expiratory wheezes noted LEIGH. No distress, speaks full sentences HEART: Regular rate and rhythm, normal S1 and S2, no murmurs, rubs or gallops, peripheral pulses normal and equal bilaterally. ABDOMEN: Soft, nontender, normoactive bowel sounds. No guarding, no rebound. No masses EXTREMITIES: Normal inspection, Normal range of motion, no edema. No clubbing or cyanosis. NEUROLOGICAL: Cranial nerves II through XII grossly intact. Normal speech, normal gait, no focal sensorimotor deficits SKIN: Warm, Dry, normal turgor, no rashes or lesions noted. ED Treatment Course - LABORATORY CBC & Chemistry Diagram: 01/24/19 11:10 01/24/19 11:10 Medical Decision Making - Medical Decision Making 01/24/19 12:29 Ms. Aguirre is a 23 yo female w/ pmh as described who presents for evaluation of asthma exacerbation. Patient given duonebs and steroids upon arrival and evaluated with labs as below. Labs grossly wnl. Patient wheezes noted to be improved following treatment with no further wheezes noted on auscultation. Labs grossly wnl. Patient will follow-up with primary care provider for further evaluation. Discharging to home. Laboratory Results - last 24 hr 01/24/19 01/24/19 11:10 11:10 WBC 6.0 RBC 5.12 Hgb 14.0 Hct 43.1 MCV 84.2 MCH 27.4 MCHC 32.6 RDW 15.0 Plt Count 442 H MPV 8.1 Absolute Neuts (auto) 3.1 Neutrophils % 51.7 D Lymphocytes % 31.4 D Monocytes % 8.8 D Eosinophils % 5.7 H D Basophils % 2.4 H D Nucleated RBC % 0 Sodium Cancelled Potassium Cancelled Chloride Cancelled Carbon Dioxide Cancelled Anion Gap Cancelled BUN Cancelled Creatinine Cancelled Creat Clearance w eGFR Cancelled Random Glucose Cancelled Calcium Cancelled Total Bilirubin Cancelled AST Cancelled ALT Cancelled Alkaline Phosphatase Cancelled Total Protein Cancelled Albumin Cancelled *DC/Admit/Observation/Transfer Diagnosis at time of Disposition: Asthma exacerbation Qualifiers: Asthma severity: unspecified severity Asthma persistence: unspecified Qualified Code(s): J45.901 - Unspecified asthma with (acute) exacerbation - Discharge Dispostion Disposition: HOME - Referrals Referrals: Jasmina Arizmendi MD [Primary Care Provider] - - Patient Instructions Printed Discharge Instructions: DI for Asthma -- Adult Additional Instructions: You were evaluated today in the ER for your asthma exacerbation. No concerning findings were found and your symptoms improved following steroids and breathing treatments. Please follow-up with primary care provider for further evaluation. Return to ER if any fever, chills, further asthma exacerbation, or other concerning symptoms. - Post Discharge Activity Forms/Work/School Notes: Back to Work
[2019-01-24] MEDS ORDERED: methylPREDNISolone NA SUCC 125 MG/2 ML VIAL IVPUSH ONE (10:28)
[2019-01-24] MEDS: ALBUTEROL SO4 2.5/IPRATROPIUM 0.5 INH SOL 3 ML VIAL.NEB. NEB SCH ×4 (10:46→11:54)
[2019-01-24] MEDS ORDERED: methylPREDNISolone NA SUCC 125 MG/2 ML VIAL ONE (10:51)
[2019-01-24 11:33] LABS: BASO % 2.4 % (0-2.0); EOS % 5.7 % (0-4.5); HEMATOCRIT 43.1 % (32.4-45.2); LYMPH % 31.4 % (8-40); MCH 27.4 pg (25.7-33.7); MCHC 32.6 g/dl (32.0-36.0); MEAN CELL VOLUME 84.2 fl (80-96); MEAN PLT VOLUME 8.1 fl (7.5-11.1); MONO % 8.8 % (3.8-10.2); NEUT % 51.7 % (42.8-82.8); PLATELET COUNT 442 K/MM3 (134-434); RBC 5.12 M/mm3 (3.60-5.2)
[2019-01-24] MEDS ORDERED: ONDANSETRON *ODT* 4 MG TABLET SL ONE (11:56)
[2019-01-24] MEDS ORDERED: ONDANSETRON *ODT* 4 MG TABLET ONE (11:59)
[2019-01-24 12:54] VITALS: BP 127/83; PULSE 91
== END 2019-01-24 12:56 | disposition home or self-care (01) ==
LOC: JER 10:05
PROC: 3E0F7GC Introduction of Other Therapeutic Substance into Respiratory Tract, Via Natural or Artificial Opening (ICD-10-PCS; principal; 2019-01-24)
PROC: 3E0333Z Introduction of Anti-inflammatory into Peripheral Vein, Percutaneous Approach (ICD-10-PCS; 2019-01-24)
DX: J45.901 Unspecified asthma with (acute) exacerbation (principal)
CPT/HCPCS: 36415; 85025; 99282-25; Q0162

== ENCOUNTER 2019-03-29 09:58 | Emergency (ER) | payer OTHER ==
[2019-03-29] MEDS ORDERED: ALBUTEROL SO4 2.5/IPRATROPIUM 0.5 INH SOL 3 ML VIAL.NEB. NEB ONE ×5 (10:03→14:03)
[2019-03-29 10:08] VITALS: TEMP 98.3; BMI 46.4
[2019-03-29] MEDS ORDERED: predniSONE 20 MG TABLET (UD) PO ONE (10:50)
[2019-03-29] MEDS: ALBUTEROL SO4 2.5/IPRATROPIUM 0.5 INH SOL 3 ML VIAL.NEB. NEB SCH ×3 (11:00→14:01)
[2019-03-29] MEDS ORDERED: predniSONE 10 MG TABLET (UD) ONE (11:15)
[2019-03-29] MEDS ORDERED: predniSONE 20 MG TABLET (UD) ONE (11:15)
--- NOTE | 2019-03-29 14:09 | PDOC ---
History of Present Illness - General Chief Complaint: Respiratory Stated Complaint: ASTHMA ATTACK Time Seen by Provider: 03/29/19 10:16 Past History - Past Medical History Allergies/Adverse Reactions: Allergies Allergy/AdvReac Type Severity Reaction Status Date / Time ciprofloxacin [From Cipro] Allergy Severe Hives Verified 03/29/19 10:06 ciprofloxacin HCl Allergy Severe Hives Verified 03/29/19 10:06 [From Cipro] Penicillins Allergy Severe Verified 03/29/19 10:06 Home Medications: Ambulatory Orders Albuterol Sulfate Inhaler - [Ventolin HFA Inhaler -] 1 - 2 inh PO Q4H PRN #1 inhaler 05/30/18 Albuterol 0.083% Nebulizer Riitka [Ventolin 0.083%] 1 neb NEB Q4H 03/29/19 Albuterol Sulfate Inhaler - [Ventolin Hfa Inhaler -] 1 puff IH Q4H PRN #1 inhaler 03/29/19 Prednisone [Prednisone 50 MG TABLETS] 50 mg PO DAILY #4 tablet 03/29/19 Asthma: Yes COPD: No Psychiatric Problems: Yes (ANXIETY) - Reproductive History (#): 2 Para: 0 Cervical CA: No Dysfunctional Uterine Bleeding: No Ectopic : No Endometrial CA: No Polycystic Ovaries: No Therapeutic (s) & number: Yes (1) Tubal Ligation: No Spontaneous : 0 - Immunization History Immunization Up to Date: Yes - Suicide/Smoking/Psychosocial Hx Smoking Status: No Smoking History: Unknown if ever smoked Have you smoked in the past 12 months: No Hx Alcohol Use: No Drug/Substance Use Hx: No Substance Use Type: None Hx Substance Use Treatment: No *Physical Exam - Vital Signs Last Vital Signs Temp Pulse Resp BP Pulse Ox 98.3 F 98 H 22 H 129/88 97 03/29/19 10:07 03/29/19 10:07 03/29/19 10:07 03/29/19 10:07 03/29/19 10:07 ED Treatment Course - ADDITIONAL ORDERS Additional order review: Laboratory Results 03/29/19 10:49 Urine HCG, Qual Negative - Medications Given in the ED: ED Medications Discontinued Medications Generic Name Dose Route Start Last Admin Trade Name Freq PRN Reason Stop Dose Admin Albuterol/Ipratropium 2 amp 03/29/19 10:06 03/29/19 10:07 Duoneb - NEB 03/29/19 10:07 2 amp NOW ONE Administration Albuterol/Ipratropium 1 amp 03/29/19 11:00 03/29/19 14:01 Duoneb - NEB 03/29/19 11:46 1 amp Q15M NOLA Administration Prednisone 50 mg 03/29/19 10:50 03/29/19 11:00 Deltasone - PO 03/29/19 10:51 50 mg ONCE ONE Administration Medical Decision Making - Medical Decision Making 23yo F with PMH of asthma presenting with asthma exacerbation. She reports that this is consistent with a moderate flare-up of her asthma. Received breathing treatments and steroids. Patient reports feeling much better. Some wheezes present on left. Pending Chest PA/Lateral radiology report Patient is getting the rest of her breathing treatments 03/29/19 14:06 Improved lung exam with scant wheezes on left Patient states she is feeling much better and back to baseline Plan for discharge with referral to pulmonology Also, refill of albuterol inhaler and 50mg prednisone x 4 days 03/29/19 14:44 CXR: "No evidence of active pulmonary disease" *DC/Admit/Observation/Transfer Diagnosis at time of Disposition: Shortness of breath, Difficulty breathing Asthma exacerbation Qualifiers: Asthma severity: moderate Asthma persistence: unspecified Qualified Code(s): J45.901 - Unspecified asthma with (acute) exacerbation - Discharge Dispostion Disposition: HOME Condition at time of disposition: Improved - Prescriptions Prescriptions: Albuterol Sulfate Inhaler - [Ventolin Hfa Inhaler -] 1 puff IH Q4H PRN #1 inhaler PRN Reason: Shortness Of Breath Prednisone [Prednisone 50 MG TABLETS] 50 mg PO DAILY #4 tablet - Referrals Referrals: Jona Kapadia MD, [Staff Physician] - - Patient Instructions Printed Discharge Instructions: DI for Asthma -- Adult Additional Instructions: You were seen in the emergency department for shortness of breath. Your Chest X- Ray was within normal limits. You received steroids and breathing treatments which improved your symptoms. Since you are having frequent asthma flare-ups, we are referring you to a lung specialist. Call the number provided today or tomorrow morning and make an appointment. Your workup is not complete until you do so. We sent prescriptions to your pharmacy: Predisone 50mg: Take 1 tablet daily for the next four days Albuterol Inhaler: Take one to two puffs every four hours if you need it for your asthma Call for emergency medical services or go to the emergency room right away if any of the following occurs: Difficulty breathing, unrelieved by medications Tightness in chest, unrelieved by medications If you think you have an emergency, call for medical help right away. - Post Discharge Activity Forms/Work/School Notes: Back to Work
--- NOTE | 2019-03-29 14:22 | PDOC ---
Documentation entered by Lucila Quintanilla SCRIBE, acting as scribe for Lorie Napier MD. Lorie Napier MD: This documentation has been prepared by the Socorro ramesh Sammi, SCRIBE, under my direction and personally reviewed by me in its entirety. I confirm that the documentation accurately reflects all work, treatment, procedures, and medical decision making performed by me. History of Present Illness - General Chief Complaint: Respiratory Stated Complaint: ASTHMA ATTACK Time Seen by Provider: 03/29/19 10:16 History Source: Patient Exam Limitations: No Limitations - History of Present Illness Initial Comments: 03/29/19 11:00 The patient is a 23 year old female with a significant PMH of asthma (ICU admission 05/2018, never intubated), who presents to the emergency department for evaluation of an asthma exacerbation. The patient reports she has felt short of breath for the past week and notes using her at home nebulizer with little relief. The patient states she woke up this morning with difficulty breathing prompting ED visit. She states on the scale of 0 to 10 asthma exacerbation, she rates this one at a 4.5/10. Denies CP. The patient states she has tried to alleviate her symptoms by sleeping with her head elevated with minimal relief. Last course of steroids was 1 month ago for a mild asthma exacerbation. Denies fever or chills. The patient is a non-smoker and tries to avoid secondhand smoke. Denies headache, focal weakness/numbness, abd pain, N/V/ D, LE edema. Has tried advair in the past but states it made her asthma worse. Does not have a web feeder. 03/29/19 15:18 Pt feeling significantly better with nebs, steroids CXR clear Lungs with no wheezing, good air movement. Well appearing, conversational with friend Pt clinically stable for DC home with course of steroids I discussed the physical exam findings, ancillary test results and final diagnoses with the patient. I answered all of the patient's questions. The patient was satisfied with the care received and felt comfortable with the discharge plan and treatment plan. The patient will call their primary care physician within 24 hours to arrange follow-up and will return to the Emergency Department with any new, persistent or worsening symptoms. Past History - Past Medical History Allergies/Adverse Reactions: Allergies Allergy/AdvReac Type Severity Reaction Status Date / Time ciprofloxacin [From Cipro] Allergy Severe Hives Verified 03/29/19 10:06 ciprofloxacin HCl Allergy Severe Hives Verified 03/29/19 10:06 [From Cipro] Penicillins Allergy Severe Verified 03/29/19 10:06 Home Medications: Ambulatory Orders Albuterol Sulfate Inhaler - [Ventolin HFA Inhaler -] 1 - 2 inh PO Q4H PRN #1 inhaler 05/30/18 Albuterol 0.083% Nebulizer Ritika [Ventolin 0.083%] 1 neb NEB Q4H 03/29/19 Albuterol Sulfate Inhaler - [Ventolin Hfa Inhaler -] 1 puff IH Q4H PRN #1 inhaler 03/29/19 Prednisone [Prednisone 50 MG TABLETS] 50 mg PO DAILY #4 tablet 03/29/19 Asthma: Yes COPD: No Psychiatric Problems: Yes (ANXIETY) - Reproductive History (#): 2 Para: 0 Cervical CA: No Dysfunctional Uterine Bleeding: No Ectopic : No Endometrial CA: No Polycystic Ovaries: No Therapeutic (s) & number: Yes (1) Tubal Ligation: No Spontaneous : 0 - Immunization History Immunization Up to Date: Yes - Suicide/Smoking/Psychosocial Hx Smoking Status: No Smoking History: Unknown if ever smoked Have you smoked in the past 12 months: No Hx Alcohol Use: No Drug/Substance Use Hx: No Substance Use Type: None Hx Substance Use Treatment: No Respiratory Specific PMHX - Complaint Specific PMHX Angina: No Bronchitis: Yes Review of Systems - Review of Systems Comments:: 03/29/19 11:01 GENERAL/CONSTITUTIONAL: No fever or chills. No weakness. HEAD, EYES, EARS, NOSE AND THROAT: No change in vision. No ear pain or discharge. No sore throat. GASTROINTESTINAL: No nausea, vomiting, diarrhea or constipation. GENITOURINARY: No dysuria, frequency, or change in urination. CARDIOVASCULAR: no chest pain RESPIRATORY: (+)SOB (+)wheezing. No cough or hemoptysis. MUSCULOSKELETAL: No joint or muscle swelling or pain. No neck or back pain. SKIN: No rash NEUROLOGIC: No headache, vertigo, loss of consciousness, or change in strength/ sensation. *Physical Exam - Vital Signs Last Vital Signs Temp Pulse Resp BP Pulse Ox 98.3 F 98 H 22 H 129/88 97 03/29/19 10:07 03/29/19 10:07 03/29/19 10:07 03/29/19 10:07 03/29/19 10:07 - Physical Exam Comments: 03/29/19 11:02 GENERAL: Awake, alert, and fully oriented, Well appearing, speaking in full sentences with friend HEAD: No signs of trauma EYES: PERRLA, EOMI, sclera anicteric, conjunctiva clear ENT: Hearing grossly normal, nares patent, oropharynx clear without exudates. Moist mucosa NECK: Normal ROM, supple, no lymphadenopathy, JVD, or masses LUNGS: (+)Diffuse mild expiratory wheezing, right greater than left, with good air movement HEART: Regular rate and rhythm, normal S1 and S2, no murmurs, rubs or gallops ABDOMEN: Soft, nontender, normoactive bowel sounds. No guarding, no rebound. No masses EXTREMITIES: Normal range of motion, no edema. No clubbing or cyanosis. No cords , erythema, or tenderness. WWP. NEUROLOGICAL: Normal speech, cranial nerves intact, 5/5 strength in all 4 extremities, normal sensation to light touch in all 4 extremities, normal gait SKIN: Warm, Dry, normal turgor, no rashes or lesions noted. ED Treatment Course - ADDITIONAL ORDERS Additional order review: Laboratory Results 03/29/19 10:49 Urine HCG, Qual Negative - RADIOLOGY Radiology Studies Ordered: Category Date Time Status CHEST PA & LAT [RAD] Stat Radiology 03/29/19 13:23 Completed - Medications Given in the ED: ED Medications Discontinued Medications Generic Name Dose Route Start Last Admin Trade Name Freq PRN Reason Stop Dose Admin Albuterol/Ipratropium 2 amp 03/29/19 10:06 03/29/19 10:07 Duoneb - NEB 03/29/19 10:07 2 amp NOW ONE Administration Medical Decision Making - Medical Decision Making 03/29/19 11:20 23yo F presents to the ED with SOB, with wheezing on exam, most consistent with asthma exacerbation. States this feels like prior exacerbations. No CP or tightness, normal vitals Pt PERCs out, low for ACS Will treat with nebs, steroids Pt unsure if she is , will check UPT and obtain CXR if negative *DC/Admit/Observation/Transfer Diagnosis at time of Disposition: Shortness of breath, Difficulty breathing Asthma exacerbation Qualifiers: Asthma severity: moderate Asthma persistence: unspecified Qualified Code(s): J45.901 - Unspecified asthma with (acute) exacerbation - Discharge Dispostion Disposition: HOME Condition at time of disposition: Improved - Prescriptions Prescriptions: Albuterol Sulfate Inhaler - [Ventolin Hfa Inhaler -] 1 puff IH Q4H PRN #1 inhaler PRN Reason: Shortness Of Breath Prednisone [Prednisone 50 MG TABLETS] 50 mg PO DAILY #4 tablet - Referrals Referrals: Jona Kapadia MD, [Staff Physician] - - Patient Instructions Printed Discharge Instructions: DI for Asthma -- Adult Additional Instructions: You were seen in the emergency department for shortness of breath. Your Chest X- Ray was within normal limits. You received steroids and breathing treatments which improved your symptoms. Since you are having frequent asthma flare-ups, we are referring you to a lung specialist. Call the number provided today or tomorrow morning and make an appointment. Your workup is not complete until you do so. We sent prescriptions to your pharmacy: Predisone 50mg: Take 1 tablet daily for the next four days Albuterol Inhaler: Take one to two puffs every four hours if you need it for your asthma Call for emergency medical services or go to the emergency room right away if any of the following occurs: Difficulty breathing, unrelieved by medications Tightness in chest, unrelieved by medications If you think you have an emergency, call for medical help right away. - Post Discharge Activity Forms/Work/School Notes: Back to Work - Attestations Physician Attestion: 03/29/19 17:21 I, Dr. Lorie Napier MD, attest that this document has been prepared under my direction and personally reviewed by me in its entirety. I further attest, that it accurately reflects all work, treatment, procedures and medical decision -making performed by me.
[2019-03-29 14:59] VITALS: BP 126/82; PULSE 88
== END 2019-03-29 14:46 | disposition home or self-care (01) ==
LOC: JER 09:58
PROC: 3E0F7GC Introduction of Other Therapeutic Substance into Respiratory Tract, Via Natural or Artificial Opening (ICD-10-PCS; principal; 2019-03-29)
DX: J45.901 Unspecified asthma with (acute) exacerbation (principal); F41.9 Anxiety disorder, unspecified
CPT/HCPCS: 71046-TC-FY; 84703; 99281-25

== ENCOUNTER 2019-04-17 12:51 | Emergency (ER) | payer OTHER ==
[2019-04-17 12:56] VITALS: BMI 46.4
--- NOTE | 2019-04-17 12:59 | PDOC ---
Rapid Medical Evaluation Chief Complaint: Migraine Headache Time Seen by Provider: 04/17/19 12:54 Medical Evaluation: Allergies Allergy/AdvReac Type Severity Reaction Status Date / Time ciprofloxacin [From Cipro] Allergy Severe Hives Verified 03/29/19 10:06 ciprofloxacin HCl Allergy Severe Hives Verified 03/29/19 10:06 [From Cipro] Penicillins Allergy Severe Verified 03/29/19 10:06 04/17/19 12:56 I have performed a brief in-person evaluation of this patient. The patient presents with a chief complaint of: h/o migraine presenting with complains of sudden onset of HUDSON, photophobia, nausea and vomiting since this afternoon. Pt also report feeling mild lightheadedness. report taking excedrine which helped a little with HUDSON Pertinent physical exam findings: A&O x 3 in NAD, lungs CTAB. heart RRR I have ordered the following: CBC, CMP, UA,UHCG,UCx The patient will proceed to the ED for further evaluation. Discharge Disposition - Diagnosis Migraine headache with aura Qualifiers: Status migrainosus presence: without status migrainosus Intractability: not intractable Qualified Code(s): G43.109 - Migraine with aura, not intractable, without status migrainosus - Discharge Dispostion Condition at time of disposition: Stable - Referrals - Patient Instructions - Post Discharge Activity
[2019-04-17 15:16] LABS: BASO % 0.4 % (0-2.0); EOS % 0.6 % (0-4.5); HEMATOCRIT 40.7 % (32.4-45.2); HEMOGLOBIN 13.6 GM/dL (10.7-15.3); LYMPH % 4.1 % (8-40); MCH 27.3 pg (25.7-33.7); MCHC 33.3 g/dl (32.0-36.0); MONO % 2.4 % (3.8-10.2); NEUT % 92.5 % (42.8-82.8); PLATELET COUNT 371 K/MM3 (134-434); RBC 4.96 M/mm3 (3.60-5.2); RDW 14.6 % (11.6-15.6); WHITE BLOOD COUNT 17.6 K/mm3 (4.0-10.0)
[2019-04-17 15:30] LABS: BILIRUBIN,TOTAL 0.6 mg/dL (0.2-1); BLOOD UREA NITROGEN 9.4 mg/dL (7-18); CALCIUM 9.5 mg/dL (8.5-10.1); CREATININE 0.9 mg/dL (0.55-1.3); POTASSIUM 3.4 mmol/L (3.5-5.1); TOT PROT 7.6 g/dl (6.4-8.2)
[2019-04-17 15:47] LABS: ANISOCYTOSIS 0; HELMET CELLS 0; HOWELL-JOLLY BODIES 0; MACROCYTOSIS 0; OVALOCYTE 0; PLATELET ESTIMATE NORMAL; ROULEAU 0; SICKELED CELLS 0; TARGET CELLS 0; TEAR DROP CELLS 0; TOXIC GRANULATION 0
--- NOTE | 2019-04-17 16:04 | PDOC ---
History of Present Illness - General History Source: Patient, Parent(s) Exam Limitations: No Limitations - History of Present Illness Initial Comments: 04/17/19 16:04 23yo F pmh migraines, asthma, anxiety, presenting with several hours of migraine with concurrent asthma exacerbation. Pt reports that at 11AM she began to experience her usual migraine activity (photophobia, nystagmus, emesis x2, numbness on the left side). She reports that her migraines have become more frequent, now occurring every other day, no identifiable triggers - she is not followed by neurology. She took Excedrin headache medication like usual and it didn't provide relief, like usual. She endorses ongoing headache and nausea in the department. At some point she experienced some shortness of breath and used her albuterol inhaler and nebulizer machine - she does not follow with pulm but has received a referral in the past. Of note, she was recently given an RX for 4 days of 50mg steroids. PMH: as above PSH: denies All: cipro, PCN Meds: as per chart <James Sidhu - Last Filed: 04/17/19 22:04> <Edyta Oreilly - Last Filed: 04/18/19 13:10> - General Chief Complaint: Migraine Headache Stated Complaint: HEADACHE/ LT SIDE LEG PAIN Time Seen by Provider: 04/17/19 12:54 Past History - Travel Traveled outside of the country in the last 30 days: No Close contact w/someone who was outside of country & ill: No - Past Medical History Asthma: Yes COPD: No Psychiatric Problems: Yes (ANXIETY) - Reproductive History (#): 2 Para: 0 Cervical CA: No Dysfunctional Uterine Bleeding: No Ectopic : No Endometrial CA: No Polycystic Ovaries: No Therapeutic (s) & number: Yes (1) Tubal Ligation: No Spontaneous : 0 - Immunization History Immunization Up to Date: Yes - Suicide/Smoking/Psychosocial Hx Smoking Status: No Smoking History: Never smoked Have you smoked in the past 12 months: No Hx Alcohol Use: No Drug/Substance Use Hx: No Substance Use Type: None Hx Substance Use Treatment: No <James Sidhu - Last Filed: 04/17/19 22:04> <Edyta Oreilly - Last Filed: 04/18/19 13:10> - Past Medical History Allergies/Adverse Reactions: Allergies Allergy/AdvReac Type Severity Reaction Status Date / Time ciprofloxacin [From Cipro] Allergy Severe Hives Verified 03/29/19 10:06 ciprofloxacin HCl Allergy Severe Hives Verified 03/29/19 10:06 [From Cipro] Penicillins Allergy Severe Verified 03/29/19 10:06 Home Medications: Ambulatory Orders Albuterol Sulfate Inhaler - [Ventolin HFA Inhaler -] 1 - 2 inh PO Q4H PRN #1 inhaler 05/30/18 Albuterol 0.083% Nebulizer Ritika [Ventolin 0.083%] 1 neb NEB Q4H 03/29/19 Albuterol Sulfate Inhaler - [Ventolin Hfa Inhaler -] 1 puff IH Q4H PRN #1 inhaler 03/29/19 Prednisone [Prednisone 50 MG TABLETS] 50 mg PO DAILY #4 tablet 03/29/19 Sulfamethoxazole/Trimethoprim [Bactrim Ds Tablet] 1 each PO BID #14 tablet 04/17 Review of Systems - Review of Systems Able to Perform ROS?: Yes Is the patient limited Portuguese proficient: No Constitutional: No: Symptoms Reported, Chills, Fever, Night Sweats, Weakness HEENTM: No: Symptoms Reported Respiratory: Yes: Symptoms reported, See HPI, Shortness of Breath, Wheezing Cardiac (ROS): No: Symptoms Reported ABD/GI: No: Symptoms Reported : No: Symptoms Reported Musculoskeletal: No: Symptoms Reported Integumentary: No: Symptoms Reported Neurological: Yes: Symptoms reported, See HPI, Headache, Numbness, Tingling Psychiatric: Yes: Anxiety All Other Systems: Reviewed and Negative <James Sidhu - Last Filed: 04/17/19 22:04> *Physical Exam - Vital Signs Last Vital Signs Temp Pulse Resp BP Pulse Ox 99.6 F 121 H 18 118/82 100 04/17/19 12:55 04/17/19 12:55 04/17/19 12:55 04/17/19 12:55 04/17/19 12:55 - Physical Exam Comments: 04/17/19 17:51 Vitals reviewed, notable for tachycardia to 121 Gen: Obese girl, laying on stretcher, comfortable appearing, no acute distress HEENT: normal morphologies, atraumatic, EOMI, trachea midline, MMM CV: RRR, normal s1/s2, no murmurs rubs or gallops Pulm: mild wheezing in right mid lung field, no crackles, normal work of breathing, no accessory muscle use Abd: obese, soft, nontender, nondistended Skin/EXT: warm and well perfused, no clubbing / cyanosis / edema Pulses: 2+ radial and PT <James Sidhu - Last Filed: 04/17/19 22:04> - Vital Signs Last Vital Signs Temp Pulse Resp BP Pulse Ox 98.4 F 107 H 18 146/79 99 04/17/19 20:53 04/17/19 18:07 04/17/19 12:55 04/17/19 18:07 04/17/19 18:07 <Edyta Oreilly - Last Filed: 04/18/19 13:10> Procedures - Incision and Drainage I&D Site: Left: Torso (Under left breast) Betadine cleansed: Yes Anesthesia: 1% Lidocaine Blade Size: 10 Attempts: 1 Plain Packing: No Complications: none Dressing: Yes (gauze, bandage, tape) <James Sidhu - Last Filed: 04/17/19 22:04> ED Treatment Course - LABORATORY CBC & Chemistry Diagram: 04/17/19 14:52 04/17/19 14:52 - ADDITIONAL ORDERS Additional order review: Laboratory Results 04/17/19 14:52 Sodium 143 Potassium 3.4 L Chloride 110 H Carbon Dioxide 24 Anion Gap 9 BUN 9.4 Creatinine 0.9 Est GFR (CKD-EPI)AfAm 105.19 Est GFR (CKD-EPI)NonAf 90.76 Random Glucose 94 Calcium 9.5 Total Bilirubin 0.6 AST 19 ALT 26 Alkaline Phosphatase 97 Total Protein 7.6 Albumin 4.0 04/17/19 14:52 RBC 4.96 MCV 82.0 MCHC 33.3 RDW 14.6 MPV 8.0 Neutrophils % 92.5 H D Lymphocytes % 4.1 L D Monocytes % 2.4 L Eosinophils % 0.6 D Basophils % 0.4 <James Sidhu - Last Filed: 04/17/19 22:04> - LABORATORY CBC & Chemistry Diagram: 04/17/19 14:52 04/17/19 14:52 - ADDITIONAL ORDERS Additional order review: 04/17/19 14:52 RBC 4.96 MCV 82.0 MCHC 33.3 RDW 14.6 MPV 8.0 Neutrophils % 92.5 H D Lymphocytes % 4.1 L D Monocytes % 2.4 L Eosinophils % 0.6 D Basophils % 0.4 - RADIOLOGY Radiology Studies Ordered: Category Date Time Status HEAD CT WITHOUT CONTRAST [CT] Stat CT Scan 04/17/19 18:17 Completed - Medications Given in the ED: ED Medications Discontinued Medications Generic Name Dose Route Start Last Admin Trade Name Gloria PRN Reason Stop Dose Admin Acetaminophen 1,000 mg 04/17/19 16:55 04/17/19 18:11 Ofirmev Injection - IVPB 04/17/19 16:56 1,000 mg ONCE ONE Administration Diphenhydramine HCl 25 mg 04/17/19 16:55 04/17/19 18:11 Benadryl Injection - IVPUSH 04/17/19 16:56 25 mg ONCE ONE Administration Ketorolac Tromethamine 30 mg 04/17/19 16:55 04/17/19 18:12 Toradol Injection - IVPUSH 04/17/19 16:56 30 mg ONCE ONE Administration Metoclopramide HCl 10 mg 04/17/19 16:54 04/17/19 18:11 Reglan Injection - IVPUSH 04/17/19 16:55 10 mg ONCE ONE Administration <Edyta Oreilly - Last Filed: 04/18/19 13:10> Medical Decision Making - Medical Decision Making 04/17/19 17:40 23yo F pmh migraines, asthma, anxiety, presenting with several hours of migraine , reassuring given usual symptoms, resolving, no neurologic deficits reported or on exam. Pt with poor followup, will require pulm and neuro referrals. Low suspicion of intracranial process - no need for NCHCT. Infection unlikely given afebrile, no source, no infectious symptoms. Tachycardia likely 2/2 albuterol overuse - pt counseled. -CBC, CMP, UA, UPreg -Zofran -Tylenol, Reglan, Benadryl -CXR 04/17/19 17:55 -Leukocytosis likely 2/2 recent steroid use 04/17/19 18:07 -Pt remains tachy to 107, now with fever of 101 -HUDSON with fever concerning for viral meningitis - will reevaluate 04/17/19 18:24 -Pt reports episodes of diarrhea yesterday and two days ago -Reports that her steroids were taken over a week ago -CXR still pending 04/17/19 19:33 -Head CT without evidence of acute intracranial pathology 04/17/19 20:48 -Shared decision making - discussed gastroenteritis vs meningitis as sources for fever, several days of n/v/d c/w gastroenteritis. Risks / benefits of LP discussed with patient and family at bedside. Decided against LP, return precautions discussed, family advised on what to watch for, pt encouraged to return for worsening / non-resolving symptoms. -CXR without consolidation or effusion 04/17/19 21:03 -After CXR pts mother reports noticing a lump on pts left lateral breast. Pt reports developed over past 2 days, painful, nonerythematous, fluctuant, no overlying skin changes. Drained at beside with fluid expressed, wound culture sent. -Repeat vitals with mild tachycardia, now afebrile 04/17/19 21:41 -Bactrim DS BID for 7 days -Return precautions discussed, pt and family verbalized understanding Dispo: Home <James Sidhu - Last Filed: 04/17/19 22:04> *DC/Admit/Observation/Transfer - Discharge Dispostion Decision to Admit order: No <James Sidhu - Last Filed: 04/17/19 22:04> <Edyta Oreilly - Last Filed: 04/18/19 13:10> Diagnosis at time of Disposition: Gastroenteritis, Breast abscess Migraine headache with aura Qualifiers: Status migrainosus presence: without status migrainosus Intractability: not intractable Qualified Code(s): G43.109 - Migraine with aura, not intractable, without status migrainosus - Discharge Dispostion Disposition: HOME Condition at time of disposition: Improved - Prescriptions Prescriptions: Sulfamethoxazole/Trimethoprim [Bactrim Ds Tablet] 1 each PO BID #14 tablet - Referrals Referrals: Benjamin Marquez MD [Primary Care Provider] - Anthony Adame MD [Staff Physician] - - Patient Instructions Printed Discharge Instructions: Viral Gastroenteritis, DI for Skin Abscess, DI for Headache, DI for Fever (Symptom) -- Adult Additional Instructions: Please return to the ED for any new or concerning symptoms. Especially note neurological changes, neck stiffness, or fever as discussed in the department. Please follow up with Neurology (call for appointment with Dr. Anthony Adame) as well as your Primary Care Provider. You had an incision and drainage done while in the department. Please leave the dressing in place until tomorrow. Starting tomorrow you should wash the area with warm soapy water - do not scrub. Change to a new dry gauze dressing as additional drainage can be expected. Please take your full course of antibiotics as directed - it has been sent to your pharmacy for your convenience. If you experience any further breast pain or notice red / foul smelling discharge / tenderness please follow up with your primary care provider. - Post Discharge Activity Forms/Work/School Notes: Back to Work, Parent(s) Back to Work Note
[2019-04-17] MEDS ORDERED: METOCLOPRAMIDE HCL INJECTION 10 MG/2 ML VIAL IVPUSH ONE (16:54)
[2019-04-17] MEDS ORDERED: ACETAMINOPHEN 1000 MG/100 ML VIAL (NON FORMULARY) IVPB ONE (16:55)
[2019-04-17] MEDS ORDERED: KETOROLAC TROMETHAMINE 30 MG/1 ML VIAL IVPUSH ONE (16:55)
[2019-04-17] MEDS ORDERED: ACETAMINOPHEN INJECTION 100 ML IVPB ONE (17:29)
[2019-04-17] MEDS ORDERED: METOCLOPRAMIDE HCL INJECTION 10 MG/2 ML VIAL ONE (17:29)
[2019-04-17] MEDS ORDERED: KETOROLAC TROMETHAMINE 30 MG/1 ML VIAL ONE (17:30)
--- NOTE | 2019-04-17 17:37 | PDOC ---
Documentation entered by Kendra Moncada SCRIBE, acting as scribe for Edyta Oreilly MD. Edyta Oreilly MD: This documentation has been prepared by the scribe, Kendra Moncada SCRIBE, under my direction and personally reviewed by me in its entirety. I confirm that the documentation accurately reflects all work, treatment, procedures, and medical decision making performed by me. Attending Attestation - Resident Resident Name: NahumJames - ED Attending Attestation I have performed the following: I have examined & evaluated the patient, The case was reviewed & discussed with the resident, I agree w/resident's findings & plan, Exceptions are as noted - HPI HPI: 04/17/19 16:53 The patient is a 23-year-old female, with a past medical history of asthma, migraines, and anxiety, who presents to the ED s/p migraine at 11AM today. She reports associated LT-sided facial pain and numbness/tingling and nystagmus with eye rolling, which she states is her normal progression through a migraine. She has tried Excedrin with no relief of her symptoms; she normally takes Excedrin when she has migraines, but it never relieves her symptoms. She also endorses shortness of breath and has tried her albuterol pump and subsequently felt jittery. The patient has been referred to a hr administrator in the past, but has not made an appointment. The patient denies any fevers, chills, nausea, vomiting, diarrhea, constipation , or abdominal pain. Denies any chest pain or palpitations. Denies any dizziness or lightheadedness. Allergies: Ciprofloxacin, ciprofloxacin HCl, penicillins. PCP: Dr. Manuel Marquez - Physicial Exam PE: 04/17/19 16:54 NAD, well appearing, EOMI, PERRL, MMM, nl conjunctiva, anicteric; neck supple. lungs clear, RRR, abdomen soft nontender. Back nontender. BERRY x4, no focal neuro deficits. No peripheral edema. normal color for ethnicity, WWP. - Medical Decision Making 04/17/19 17:37 See HPI for details. Prior notes reviewed, including admissions, discharges and consultations. Vital signs reviewed, +tachy but also in pain. +fever on further eval Vital Signs Temp Pulse Resp BP Pulse Ox 99.6 F 121 H 18 118/82 100 04/17/19 12:55 04/17/19 12:55 04/17/19 12:55 04/17/19 12:55 04/17/19 12:55 DDX migraine, tension headache, cluster, SWIMMING COACH mass, menses, electrolyte/ metabolic derangements, encephalitis, meningitis (viral vs bacterial). laboratory results and imaging reviewed, basic labs and lytes wnl, however leukocytosis noted, recently on steroids for asthma flare about 1 week ago, completed course CXR_no acute chest pathology, no infiltrate CT head neg for pathology/bleed/mass ED course -interventions: IVF, tylenol, toradol, benadryl, reglan, reassess feels improved on reeval repeat VS improving, no longer tachy or febrile. neuro intact, ambulatory 04/17/19 20:47 - pt with capacity, family at bedside, shared decision making discussed regarding options and possibilties for fever/headache. no meningeal signs, no neck stiffness offered LP to eval for meningitis, though doubt bacterial with full vaccination status, unclear if meningitis vaccine at 19 y/o, but did attend [employer] college. per family, remainder of vaccines UTD could also be viral gastroenteritis with constellation of n/v/d x 2 days pt and family declined LP at this time after extensive discussion of indications risks and benefits. can c/w supportive care, if worsening sx return sooner for reevaluation and discussion. while in ED getting cxr, pt mentioned soft tissue area of redness/inflammation on breast. abscess suspected to breast, i&d, wound culture and oral abx x 1 week course. warm compresses, analgesia and abx. this could be alternative source for fever and precipitating factor for migraine flare since pt describes headache similar to migraine. pt and family amenable to plan, strict return precautions and PMD followup 04/18/19 13:10
[2019-04-17 17:51] LABS: PH,URINE 5.5 (5.0-8.0); URINE APPEARANCE CLEAR; URINE BILIRUBIN NEGATIVE (NEGATIVE); URINE COLOR YELLOW; URINE GLUCOSE (UA) NEGATIVE (NEGATIVE); URINE KETONE TRACE (NEGATIVE); URINE LEUK ESTERASE TRACE (NEGATIVE); URINE NITRITE NEGATIVE (NEGATIVE); URINE PROTEIN NEGATIVE (NEGATIVE); URINE UROBILINOGEN 0.2 mg/dL (0.2-1.0)
[2019-04-17 17:57] LABS: EPI CELLS 9.9 /HPF (0-5/HPF); HYALINE CASTS 0 /lpf (0-8); URINE BACTERIA 122.6 /hpf (NEGATIVE); URINE RBC 1.5 /hpf (0-4); URINE WBC 7.5 /hpf (0-5)
[2019-04-17 18:08] VITALS: BP 146/79; PULSE 107
[2019-04-17 20:53] VITALS: TEMP 98.4
== END 2019-04-17 22:18 | disposition home or self-care (01) ==
LOC: JER 12:51
PROC: 3E033NZ Introduction of Analgesics, Hypnotics, Sedatives into Peripheral Vein, Percutaneous Approach (ICD-10-PCS; principal; 2019-04-17)
PROC: 3E0333Z Introduction of Anti-inflammatory into Peripheral Vein, Percutaneous Approach (ICD-10-PCS; 2019-04-17)
PROC: 3E033GC Introduction of Other Therapeutic Substance into Peripheral Vein, Percutaneous Approach (ICD-10-PCS; 2019-04-17)
PROC: 3E033GC Introduction of Other Therapeutic Substance into Peripheral Vein, Percutaneous Approach (ICD-10-PCS; 2019-04-17)
DX: G43.109 Migraine with aura, not intractable, without status migrainosus (principal); K52.9 Noninfective gastroenteritis and colitis, unspecified; N61.1 Abscess of the breast and nipple
CPT/HCPCS: 36415; 70450-TC; 71046-TC-FY; 80053; 81003; 84703; 85025; 87070; 87205; 99282-25; J0131

== ENCOUNTER 2019-05-27 19:23 | Emergency (ER) | payer OTHER ==
[2019-05-27 19:29] VITALS: BP 129/92; PULSE 83; TEMP 98.3; BMI 46.4
[2019-05-27] MEDS ORDERED: SULFAMETHOXAZOLE/TRIMETHOPRIM 800MG/160MG D.S. TABLET PO ONE (19:53)
--- NOTE | 2019-05-27 19:54 | PDOC ---
History of Present Illness - General Chief Complaint: Abscess Boil Stated Complaint: CIST ON RT BREAST Time Seen by Provider: 05/27/19 19:32 History Source: Patient Exam Limitations: No Limitations Past History - Past Medical History Allergies/Adverse Reactions: Allergies Allergy/AdvReac Type Severity Reaction Status Date / Time ciprofloxacin [From Cipro] Allergy Severe Hives Verified 05/27/19 19:29 ciprofloxacin HCl Allergy Severe Hives Verified 05/27/19 19:29 [From Cipro] Penicillins Allergy Severe Verified 05/27/19 19:29 Home Medications: Ambulatory Orders Albuterol Sulfate Inhaler - [Ventolin HFA Inhaler -] 1 - 2 inh PO Q4H PRN #1 inhaler 05/30/18 Albuterol 0.083% Nebulizer Ritika [Ventolin 0.083%] 1 neb NEB Q4H 03/29/19 Albuterol Sulfate Inhaler - [Ventolin Hfa Inhaler -] 1 puff IH Q4H PRN #1 inhaler 03/29/19 Prednisone [Prednisone 50 MG TABLETS] 50 mg PO DAILY #4 tablet 03/29/19 Sulfamethoxazole/Trimethoprim [Bactrim Ds Tablet] 1 each PO BID #14 tablet 04/17 Sulfamethoxazole/Trimethoprim [Bactrim Ds -] 1 tab PO BID #13 tablet 05/27/19 Asthma: Yes COPD: No Psychiatric Problems: Yes (ANXIETY) - Reproductive History (#): 2 Para: 0 Cervical CA: No Dysfunctional Uterine Bleeding: No Ectopic : No Endometrial CA: No Polycystic Ovaries: No Therapeutic (s) & number: Yes (1) Tubal Ligation: No Spontaneous : 0 - Immunization History Immunization Up to Date: Yes - Suicide/Smoking/Psychosocial Hx Smoking Status: No Smoking History: Never smoked Have you smoked in the past 12 months: No Hx Alcohol Use: No Drug/Substance Use Hx: No Substance Use Type: None Hx Substance Use Treatment: No *Physical Exam - Vital Signs Last Vital Signs Temp Pulse Resp BP Pulse Ox 98.3 F 83 18 129/92 99 05/27/19 19:27 05/27/19 19:27 05/27/19 19:27 05/27/19 19:27 05/27/19 19:27 - Physical Exam General Appearance: No: Apparent Distress Integumentary: positive: Other (mild swelling and redness, around 1x1 cm in size , along UOQ of R breast, soft to touch, no induration, no streaking, no nipple discharge, no nipple eversion, L breast unremarkable) Neurologic: positive: Alert, Normal Mood/Affect Medical Decision Making - Medical Decision Making 24 y/o F with hx of asthma, migraine, anxiety presents with painful lump along R breast which she noticed today. Denies fever, sob, cp, abd pain, n/v, drainage. Patient was seen here on 04/17 for L breast abscess which was drained and placed on Bactrim; that site has healed now. States the one of the L breast was a lot worse. Possible developing abscess Previous wound culture showed normal skin santhosh Will place on Bactrim, refer to breast surgeon 05/27/19 19:57 *DC/Admit/Observation/Transfer Diagnosis at time of Disposition: Breast abscess - Discharge Dispostion Disposition: HOME Condition at time of disposition: Stable Decision to Admit order: No - Prescriptions Prescriptions: Sulfamethoxazole/Trimethoprim [Bactrim Ds -] 1 tab PO BID #13 tablet - Referrals Referrals: Niya Vital MD [Staff Physician] - 2 Days - Patient Instructions Printed Discharge Instructions: DI for Skin Abscess Additional Instructions: Thank you for choosing [facility]. It was a pleasure taking care of you. You may take Motrin 600 mg every 6 hours by mouth as needed for mild to moderate pain. Take Motrin with food. Take Bactrim as prescribed Apply warm compresses You were referred to breast surgeon Return to the Emergency Department if your symptoms worsen or persist, you have fever, increased swelling/redness, open wound with drainage, streaking or other concerning symptoms. - Post Discharge Activity
[2019-05-27] MEDS ORDERED: SULFAMETHOXAZOLE/TRIMETHOPRIM 800MG/160MG D.S. TABLET ONE (20:01)
== END 2019-05-27 20:22 | disposition home or self-care (01) ==
LOC: JERFT 19:23
DX: N61.1 Abscess of the breast and nipple (principal); J45.909 Unspecified asthma, uncomplicated; F41.9 Anxiety disorder, unspecified; Z86.69 Personal history of other diseases of the nervous system and sense organs
CPT/HCPCS: 99281-25

== ENCOUNTER 2019-06-12 15:33 | Emergency (ER) | payer OTHER ==
[2019-06-12 15:38] VITALS: BP 148/86; PULSE 96; TEMP 98.5; BMI 42.4
[2019-06-12] MEDS ORDERED: ALBUTEROL SO4 2.5/IPRATROPIUM 0.5 INH SOL 3 ML VIAL.NEB. NEB ONE ×2 (15:39)
[2019-06-12] MEDS ORDERED: predniSONE 20 MG TABLET (UD) PO ONE (16:08)
[2019-06-12] MEDS ORDERED: ALBUTEROL SO4 0.083% IH SOL 2.5 MG/3 ML VIAL.NEB. NEB ONE (16:09)
[2019-06-12] MEDS ORDERED: predniSONE 20 MG TABLET (UD) ONE (16:09)
[2019-06-12] MEDS: ALBUTEROL SO4 2.5/IPRATROPIUM 0.5 INH SOL 3 ML VIAL.NEB. NEB SCH ×3 (16:12→16:45)
--- NOTE | 2019-06-12 16:21 | PDOC ---
History of Present Illness - General Chief Complaint: Wheezing Stated Complaint: Asthma Time Seen by Provider: 06/12/19 15:53 History Source: Patient Exam Limitations: No Limitations - History of Present Illness Initial Comments: 06/12/19 16:09 HISTORY OF PRESENT ILLNESS: This is a 24-year-old female with past medical history of asthma (no history of intubations 5-10 ED visits annually for asthma- related concerns) presents emergency department for evaluation of expiratory wheezing and moist productive cough for 1 day. Patient was given nebulizer treatments at home with minimal relief of symptoms. She denies fevers, chills, chest pain, sore throat, nasal congestion. No recent travel or sick contacts. PAST MEDICAL HISTORY: asthma SURGICAL HISTORY: Denies ALLERGIES: cipro, PCN REVIEW OF SYSTEMS General/Constitutional: Denies fever or chills. Denies weakness, weight change. HEENT: Denies change in vision. Denies ear pain or discharge. Denies sore throat. Cardiovascular: Denies chest pain or shortness of breath. Respiratory: see HPI Gastrointestinal: Denies nausea, vomiting, diarrhea or constipation. Denies rectal bleeding. Genitourinary: Denies dysuria, frequency, or change in urination. Musculoskeletal: Denies joint or muscle swelling or pain. Denies neck or back pain. Skin and breasts: Denies rash or easy bruising. Neurologic: Denies headache, vertigo, loss of consciousness, or loss of sensation. Psychiatric: Denies depression or anxiety. Endocrine: Denies increased thirst. Denies abnormal weight change. Hematologic/Lymphatic: Denies anemia, easy bleeding, or history of blood clots. Allergic/Immunologic: Denies hives or skin allergy. Denies latex allergy. PHYSICAL EXAM General Appearance: Well-appearing, appropriately dressed. No apparent distress , no intoxication. Respiratory/Chest: Speaking full sentences. Lungs CTAB. No shortness of breath , chest tenderness, respiratory distress, accessory muscle use. No crackles, rales, rhonchi, stridor, wheezing, dullness Cardiovascular: RRR. S1, S2. No JVD, murmur, bradycardia, tachycardia. Integumentary: Appropriate color, dry, warm. No cyanosis, erythema, jaundice or rash Past History - Past Medical History Allergies/Adverse Reactions: Allergies Allergy/AdvReac Type Severity Reaction Status Date / Time ciprofloxacin [From Cipro] Allergy Severe Hives Verified 06/12/19 15:38 ciprofloxacin HCl Allergy Severe Hives Verified 06/12/19 15:38 [From Cipro] Penicillins Allergy Severe Verified 06/12/19 15:38 Home Medications: Ambulatory Orders Albuterol 0.083% Nebulizer Ritika [Ventolin 0.083%] 1 neb NEB Q4H 03/29/19 Albuterol Sulfate Inhaler - [Ventolin Hfa Inhaler -] 1 puff IH Q4H PRN #1 inhaler 03/29/19 Sulfamethoxazole/Trimethoprim [Bactrim Ds Tablet] 1 each PO BID #14 tablet 04/17 Sulfamethoxazole/Trimethoprim [Bactrim Ds -] 1 tab PO BID #13 tablet 05/27/19 Albuterol Sulfate Inhaler - [Ventolin HFA Inhaler -] 1 - 2 inh PO Q4H PRN #1 inhaler 06/12/19 Prednisone [Prednisone 50 MG TABLETS] 50 mg PO DAILY #3 tablet 06/12/19 Asthma: Yes COPD: No Psychiatric Problems: Yes (ANXIETY) - Reproductive History (#): 2 Para: 0 Cervical CA: No Dysfunctional Uterine Bleeding: No Ectopic : No Endometrial CA: No Polycystic Ovaries: No Therapeutic (s) & number: Yes (1) Tubal Ligation: No Spontaneous : 0 - Immunization History Immunization Up to Date: Yes - Suicide/Smoking/Psychosocial Hx Smoking Status: No Smoking History: Never smoked Have you smoked in the past 12 months: No Information on smoking cessation initiated: No Hx Alcohol Use: No Drug/Substance Use Hx: No Substance Use Type: None Hx Substance Use Treatment: No Respiratory Specific PMHX - Complaint Specific PMHX Angina: No Bronchitis: Yes *Physical Exam - Vital Signs Last Vital Signs Temp Pulse Resp BP Pulse Ox 98.5 F 96 H 20 148/86 95 06/12/19 15:36 06/12/19 15:36 06/12/19 15:36 06/12/19 15:36 06/12/19 15:36 ED Treatment Course - Medications Given in the ED: ED Medications Discontinued Medications Generic Name Dose Route Start Last Admin Trade Name Freq PRN Reason Stop Dose Admin Albuterol/Ipratropium 1 amp 06/12/19 15:39 06/12/19 15:42 Duoneb - NEB 06/12/19 15:40 1 amp ONCE ONE Administration Medical Decision Making - Medical Decision Making 06/12/19 16:21 A/P: 24-year-old woman with asthma exacerbation DuoNeb 4 doses total Prednisone 60 mg orally now Reassess 06/12/19 16:56 Repeat lung exam reveals clear lungs. I discussed the physical exam findings, ancillary test results and final diagnoses with the patient. I answered all of the patient's questions. The patient was satisfied with the care received and felt comfortable with the discharge plan and treatment plan. The patient will call their primary care physician within 24 hours to arrange follow-up and will return to the Emergency Department with any new, persistent or worsening symptoms. Portions of this note have been documented using voice recognition software. As a result, errors may occur in the abattoir manager process. Effort has been made to correct all grammatical and abattoir manager error, but some may have been missed. *DC/Admit/Observation/Transfer Diagnosis at time of Disposition: Asthma exacerbation Qualifiers: Asthma severity: mild Asthma persistence: intermittent Qualified Code(s): J45.21 - Mild intermittent asthma with (acute) exacerbation - Discharge Dispostion Disposition: HOME Condition at time of disposition: Stable Decision to Admit order: No - Prescriptions Prescriptions: Albuterol Sulfate Inhaler - [Ventolin HFA Inhaler -] 1 - 2 inh PO Q4H PRN #1 inhaler PRN Reason: wheezing or shortness of breat Prednisone [Prednisone 50 MG TABLETS] 50 mg PO DAILY #3 tablet - Referrals - Patient Instructions Additional Instructions: Rest, drink lots of fluids: Teas, water, soups, Pedialyte Saltwater gargles Steamy showers/seem to face break up mucus Avoid contact with others until fevers and cough resolved Lots of handwashing and good hygiene Continue [id number] medications for symptomatic relief Tylenol or Motrin for fever and pain Continue albuterol nebulizers every 4-6 hours for the next 2 days then as needed for continued cough Prednisone as directed until completed Followup with private physician in one to 2 days Return to emergency department for worsened symptoms, fevers, dehydration - Post Discharge Activity
== END 2019-06-12 17:24 | disposition home or self-care (01) ==
LOC: JERFT 15:33
PROC: 3E0F7GC Introduction of Other Therapeutic Substance into Respiratory Tract, Via Natural or Artificial Opening (ICD-10-PCS; principal; 2019-06-12)
DX: J45.21 Mild intermittent asthma with (acute) exacerbation (principal); Z88.0 Allergy status to penicillin; Z88.9 Allergy status to unspecified drugs, medicaments and biological substances; F41.9 Anxiety disorder, unspecified
CPT/HCPCS: 99281-25

== ENCOUNTER 2019-11-27 17:08 | Emergency (ER) | payer OTHER ==
[2019-11-27 17:41] VITALS: BP 132/85; PULSE 87; TEMP 98.9; BMI 44.4
--- NOTE | 2019-11-27 17:42 | PDOC ---
Rapid Medical Evaluation Chief Complaint: Cold Symptoms Time Seen by Provider: 11/27/19 17:39 Medical Evaluation: Allergies Allergy/AdvReac Type Severity Reaction Status Date / Time ciprofloxacin [From Cipro] Allergy Severe Hives Verified 11/27/19 17:38 ciprofloxacin HCl Allergy Severe Hives Verified 11/27/19 17:38 [From Cipro] Penicillins Allergy Severe Verified 11/27/19 17:38 03 17:39 I have performed a brief in-person evaluation of this patient. The patient presents with a chief complaint of:URI sxs Pertinent physical exam findings:stable I have ordered the following:nothing The patient will proceed to the ED for further evaluation Discharge Disposition - Diagnosis URI (upper respiratory infection) Qualifiers: URI type: unspecified viral URI Qualified Code(s): J06.9 - Acute upper respiratory infection, unspecified - Referrals Referrals: Benjamin Marquez MD [Primary Care Provider] - - Patient Instructions - Post Discharge Activity
[2019-11-27] MEDS ORDERED: ONDANSETRON *ODT* 4 MG TABLET SL ONE (18:58)
--- NOTE | 2019-11-27 18:58 | PDOC ---
History of Present Illness - General Chief Complaint: Cold Symptoms Stated Complaint: DIZZY SPELLS Time Seen by Provider: 11/27/19 17:39 History Source: Patient Exam Limitations: No Limitations - History of Present Illness Initial Comments: 11/27/19 18:53 24 year old female with history of asthma no significant surgical history presents with reports of headache and dizziness x 3 weeks intermittently that is causing her to feel dizzy. States she also has uri with yellowish phlegm. Not using any medication for headache. Is this a multiple visit Asthma Patient?: No Timing/Duration: reports: week (3 weeks) Severity: reports: mild Possible Cause: Yes: no prior episodes Associated Symptoms: reports: dizziness, headache Past History - Travel Traveled outside of the country in the last 30 days: No Close contact w/someone who was outside of country & ill: No - Past Medical History Allergies/Adverse Reactions: Allergies Allergy/AdvReac Type Severity Reaction Status Date / Time ciprofloxacin [From Cipro] Allergy Severe Hives Verified 11/27/19 17:38 ciprofloxacin HCl Allergy Severe Hives Verified 11/27/19 17:38 [From Cipro] Penicillins Allergy Severe Verified 11/27/19 17:38 Home Medications: Ambulatory Orders Albuterol 0.083% Nebulizer Ritika [Ventolin 0.083%] 1 neb NEB Q4H 03/29/19 Albuterol Sulfate Inhaler - [Ventolin Hfa Inhaler -] 1 puff IH Q4H PRN #1 inhaler 03/29/19 Sulfamethoxazole/Trimethoprim [Bactrim Ds Tablet] 1 each PO BID #14 tablet 04/17/19 Sulfamethoxazole/Trimethoprim [Bactrim Ds -] 1 tab PO BID #13 tablet 05/27/19 Albuterol Sulfate Inhaler - [Ventolin HFA Inhaler -] 1 - 2 inh PO Q4H PRN #1 inhaler 06/12/19 Prednisone [Prednisone 50 MG TABLETS] 50 mg PO DAILY #3 tablet 06/12/19 Clindamycin [Cleocin -] 300 mg PO TID #21 capsule 11/27/19 Ondansetron [Zofran *Odt*] 4 mg SL BID #8 od.tablet 11/27/19 Asthma: Yes COPD: No Psychiatric Problems: Yes (ANXIETY) - Reproductive History (#): 2 Para: 0 Cervical CA: No Dysfunctional Uterine Bleeding: No Ectopic : No Endometrial CA: No Polycystic Ovaries: No Therapeutic (s) & number: Yes (1) Tubal Ligation: No Spontaneous : 0 - Immunization History Immunization Up to Date: Yes - Psycho Social/Smoking Cessation Hx Smoking Status: No Smoking History: Never smoked Have you smoked in the past 12 months: No Information on smoking cessation initiated: No Hx Alcohol Use: No Drug/Substance Use Hx: No Substance Use Type: None Hx Substance Use Treatment: No Respiratory Specific PMHX - Complaint Specific PMHX Hx Airway Support: No Hx Asthma: No Hx Allergic Rhinitis: No Hx Bronchitis: Yes Hx Pulmonary Embolus: No Review of Systems - Review of Systems Able to Perform ROS?: Yes Is the patient limited Citizen Of [place] proficient: No Constitutional: No: Chills, Fever HEENTM: Yes: Nose Pain, Nose Congestion Respiratory: No: Cough, Shortness of Breath Cardiac (ROS): Yes: Lightheadedness ABD/GI: No: Constipated, Poor Appetite : No: Dysuria, Discharge, Pain Integumentary: No: Bruising, Erythema Neurological: Yes: Headache Psychiatric: No: Stressors, Sleep Pattern Change Endocrine: No: Increased Urine *Physical Exam - Vital Signs Last Vital Signs Temp Pulse Resp BP Pulse Ox 98.9 F 87 18 132/85 99 11/27/19 17:38 11/27/19 17:38 11/27/19 17:38 11/27/19 17:38 11/27/19 17:38 - Physical Exam General Appearance: Yes: Nourished, Appropriately Dressed HEENT: positive: JANEL, Pharynx Normal, Other (+ tenderness with palpation over frontal sinuses) Neck: positive: Supple. 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 States she also has uri with yellowish phlegm. Not using any medication for headache. headache, likely sinus infection -u/a -urine hcg -analgesia 11/27/19 19:34 u/s negative for nitrite and leuks urine hcg: negative will treat for sinusitis 11/27/19 19:35 Discharge - Discharge Information Problems reviewed: Yes Clinical Impression/Diagnosis: Sinusitis URI (upper respiratory infection) Qualifiers: URI type: unspecified viral URI Qualified Code(s): J06.9 - Acute upper respiratory infection, unspecified Condition: Good Disposition: HOME - Admission No - Additional Discharge Information Prescriptions: Clindamycin [Cleocin -] 300 mg PO TID #21 capsule Ondansetron [Zofran *Odt*] 4 mg SL BID #8 od.tablet - Follow up/Referral Referrals: Benjamin Marquez MD [Primary Care Provider] - Call tomorrow - Patient Discharge Instructions Patient Printed Discharge Instructions: DI for Sinusitis - Post Discharge Activity Work/Back to School Note: Back to Work
[2019-11-27] MEDS ORDERED: ACETAMINOPHEN 500 MG TABLET (FP) PO ONE (19:01)
[2019-11-27] MEDS ORDERED: ONDANSETRON *ODT* 4 MG TABLET ONE (19:02)
[2019-11-27 19:32] LABS: PH,URINE 7.5 (5.0-8.0); URINE APPEARANCE CLEAR; URINE BILIRUBIN NEGATIVE (NEGATIVE); URINE COLOR YELLOW; URINE GLUCOSE (UA) NEGATIVE (NEGATIVE); URINE KETONE NEGATIVE (NEGATIVE); URINE LEUK ESTERASE NEGATIVE (NEGATIVE); URINE NITRITE NEGATIVE (NEGATIVE); URINE PROTEIN NEGATIVE (NEGATIVE); URINE UROBILINOGEN 0.2 mg/dL (0.2-1.0)
[2019-11-27 19:34] LABS: HCG,QUALITATIVE URINE Negative
== END 2019-11-27 19:53 | disposition home or self-care (01) ==
LOC: JERFT 17:08
DX: J32.8 Other chronic sinusitis (principal); J06.9 Acute upper respiratory infection, unspecified; B97.89 Other viral agents as the cause of diseases classified elsewhere; F41.9 Anxiety disorder, unspecified; Z87.09 Personal history of other diseases of the respiratory system; Z88.0 Allergy status to penicillin; Z88.1 Allergy status to other antibiotic agents
CPT/HCPCS: 81003; 84703; 99283-25; Q0162

== ENCOUNTER 2020-04-01 16:10 | Emergency (ER) | payer OTHER ==
--- NOTE | 2020-04-01 16:20 | PDOC ---
Rapid Medical Evaluation Chief Complaint: Asthma Time Seen by Provider: 04/01/20 16:15 Medical Evaluation: Allergies Allergy/AdvReac Type Severity Reaction Status Date / Time ciprofloxacin [From Cipro] Allergy Severe Hives Verified 11/27/19 17:38 ciprofloxacin HCl Allergy Severe Hives Verified 11/27/19 17:38 [From Cipro] Penicillins Allergy Severe Verified 11/27/19 17:38 04/01/20 16:15 I have performed a brief in-person evaluation of this patient. The patient presents with a chief complaint of: h/o Asthma presenting with complains of Asthma symptoms, migraine and fever of 100.1F this AM. report taking Tylenol 5hrs ago. report SOB, wheezing. finished prednisone course a week ago. had neb tx this AM Pertinent physical exam findings: diffused inspiratory wheezing in no respiratory distress. afebrile. low O2 sat 92% RA I have ordered the following: atrovent neb. CXR, oxygen The patient will proceed to the ED for further evaluation. Discharge Disposition - Diagnosis Shortness of breath Asthma attack Qualifiers: Asthma severity: mild Asthma persistence: persistent Qualified Code(s): J45.31 - Mild persistent asthma with (acute) exacerbation - Discharge Dispostion Condition at time of disposition: Stable - Referrals Referrals: Benjamin Marquez MD [Primary Care Provider] - - Patient Instructions - Post Discharge Activity
[2020-04-01 16:21] VITALS: TEMP 99.2; BMI 48.2
[2020-04-01] MEDS ORDERED: SODIUM CHLORIDE FOR INHALATION 3 ML VIAL.NEB IH ONE (16:21)
[2020-04-01] MEDS ORDERED: IPRATROPIUM BR 0.02% 0.5 MG/2.5 ML VIAL.NEB. NEB ONE (16:21)
[2020-04-01] MEDS ORDERED: methylPREDNISolone NA SUCC 125 MG/2 ML VIAL IVPUSH ONE (16:38)
[2020-04-01] MEDS ORDERED: DEXAMETHASONE SOD PHOSPHATE 10 MG/1 ML VIAL IVPUSH ONE (16:52)
[2020-04-01] MEDS ORDERED: DEXAMETHASONE SOD PHOSPHATE 10 MG/1 ML VIAL ONE (16:53)
[2020-04-01] MEDS ORDERED: ALBUTEROL SO4 2.5/IPRATROPIUM 0.5 INH SOL 3 ML VIAL.NEB. NEB ONE (16:53)
--- NOTE | 2020-04-01 17:11 | PDOC ---
History of Present Illness - General Chief Complaint: Asthma Stated Complaint: FEVER,ASTHMA,HEADACHE Time Seen by Provider: 04/01/20 16:15 - History of Present Illness Initial Comments: Pt is a 24yo F with PMH asthma who presents with shortness of breath. Pt states that symptoms began 1 week ago. SOB is intermittent and worse with exertion and hot temperatures. States that albuterol improves symptoms and she has been using her inhaler 6x/day. She was finished a prednisone taper last week after been seen at urgent care. She only has a albuterol inhaler as her Dulera was not covered by insurance. She states having exacerbations 4-5x/year, with 2 hospitalizations as an adult (more as a child), no history of intubation. Reports migraine headache, denies fever, chills, sinus congestion, sore throat, chest pain, palpitations. PCP: Jimmy PMH: asthma PSHx: none Med: albuterol All: cipro SHx: denies tobacco, ETOH, illicit drug use Past History - Medical History Allergies/Adverse Reactions: Allergies Allergy/AdvReac Type Severity Reaction Status Date / Time ciprofloxacin [From Cipro] Allergy Severe Hives Verified 11/27/19 17:38 ciprofloxacin HCl Allergy Severe Hives Verified 11/27/19 17:38 [From Cipro] Penicillins Allergy Severe Verified 11/27/19 17:38 Home Medications: Ambulatory Orders Albuterol 0.083% Nebulizer Ritika [Ventolin 0.083%] 1 neb NEB Q4H 03/29/19 Albuterol Sulfate Inhaler - [Ventolin Hfa Inhaler -] 1 puff IH Q4H PRN #1 inhaler 03/29/19 Sulfamethoxazole/Trimethoprim [Bactrim Ds Tablet] 1 each PO BID #14 tablet 04/17/19 Sulfamethoxazole/Trimethoprim [Bactrim Ds -] 1 tab PO BID #13 tablet 05/27/19 Albuterol Sulfate Inhaler - [Ventolin HFA Inhaler -] 1 - 2 inh PO Q4H PRN #1 i nhaler 06/12/19 Prednisone [Prednisone 50 MG TABLETS] 50 mg PO DAILY #3 tablet 06/12/19 Clindamycin [Cleocin -] 300 mg PO TID #21 capsule 11/27/19 Ondansetron [Zofran *Odt*] 4 mg SL BID #8 od.tablet 11/27/19 Albuterol 0.083% Nebulizer Ritika [Ventolin 0.083% Nebulizer Soln -] 1 neb NEB Q4H PRN #1 box 12/19/19 predniSONE [Deltasone -] 40 mg PO DAILY #8 tablet 12/19/19 Budesonide/Formeterol Fumarate [SYMBICORT 80/4.5mcg -] 2 puff PO BID #1 cannister 04/01/20 Prednisone [Prednisone 50 MG TABLETS] 50 mg PO DAILY 5 Days #5 tablet 04/01/20 Asthma: No COPD: No Psychiatric Problems: Yes (ANXIETY) - Reproductive History (#): 2 Para: 0 Cervical CA: No Dysfunctional Uterine Bleeding: No Ectopic : No Endometrial CA: No Polycystic Ovaries: No Therapeutic (s) & number: Yes (1) Tubal Ligation: No Spontaneous : 0 - Immunization History Immunization Up to Date: Yes - Psycho-Social/Smoking History Smoking Status: No Smoking History: Never smoked Have you smoked in the past 12 months: No Information on smoking cessation initiated: No - Substance Abuse Hx (Audit-C & DAST Scrn) How often the patient has a drink containing alcohol: Never Score: In Men: 4 or > Positive; In Women: 3 or > Positive: 0 Screen Result (Pos requires Nsg. Audit-10AR): Negative Review of Systems - Review of Systems Comments:: CONSTITUTIONAL:denies fever, chills, diaphoresis, generalized weakness HEENT:denies rhinorrhea, nasal congestion, throat pain, ear pain, eye pain, visual Changes CARDIOVASCULAR:denies chest pain, palpitations RESPIRATORY:Reports SOB, wheezing; denies cough GASTROINTESTINAL: denies abdominal pain, nausea, vomiting, diarrhea, constipation, melena, hematochezia GENITOURINARY:denies dysuria, frequency, urgency MUSCULOSKELETAL:denies myalgia, arthralgia HEMATOLOGIC/IMMUNOLOGIC:denies easy bleeding, easy bruising NEUROLOGIC:reports headache PSYCHIATRIC:reports anxiety *Physical Exam - Vital Signs Last Vital Signs Temp Pulse Resp BP Pulse Ox 99.2 F 114 H 17 127/84 92 L 04/01/20 16:15 04/01/20 16:15 04/01/20 16:15 04/01/20 16:15 04/01/20 16:15 - Physical Exam General: in no acute distress, well developed, well nourished Head: normocephalic, atraumatic Eyes: PERRL, anicteric sclera ENT: moist mucous membranes Lung: decreased breath sounds b/l, CTA b/l, wheezes; speaking in full sentences Heart: RRR, normal S1, S2, no murmurs, rubs, gallops Abdomen: soft, non tender, no guarding, rebound, masses Extremities: no edema Skin: warm, dry Medical Decision Making - Medical Decision Making Pt is a 24yo F with hx of multiple ED/UC visits for asthma exacerbations who presents with shortness of breath. Vital Signs Period Temp Pulse Resp BP Sys/Costello Pulse Ox Last 24 Hr 99.2 F 114 17 127/84 92 DDx: Asthma exacerbation, upper respiratory infection (less likely given no fever, sore throat, cough nasal congestion), allergic reaction (less likely given length of symptoms, no known exposure to allergic trigger) Plan: Duonebs, decadron Reassessment After duoneb treatment, patient reports subjective improvement in breathing, lung exam with improved air entry and decreased wheezing. Pt will be sent home with symbicort and 5day course of prednisone. Pt was informed of adverse effects of prednisone. Pt states that she feels well and ready to go home. Disposition Discharge to home Discharge - Discharge Information Problems reviewed: Yes Clinical Impression/Diagnosis: Shortness of breath Asthma attack Qualifiers: Asthma severity: mild Asthma persistence: persistent Qualified Code(s): J45.31 - Mild persistent asthma with (acute) exacerbation Condition: Stable - Admission No - Additional Discharge Information Prescriptions: Prednisone [Prednisone 50 MG TABLETS] 50 mg PO DAILY 5 Days #5 tablet Budesonide/Formeterol Fumarate [SYMBICORT 80/4.5mcg -] 2 puff PO BID #1 cannister - Follow up/Referral Referrals: Benjamin Marquez MD [Primary Care Provider] - - Patient Discharge Instructions Patient Printed Discharge Instructions: DI for Asthma -- Adult Additional Instructions: You came into the ER shortness of breath. We did a physical exam, gave you a breathing treatment (duoneb) and steroids. As discussed, please make sure to follow up with your primary care doctor within the next week. Come back to the ER immediately with any new or worsening concerns, such as in creasing shortness of breath, you do not feel better with albuterol, or if you have chest pain or fevers. Thank you for coming to the [facility] We hope you feel better soon! - Post Discharge Activity Work/Back to School Note: Back to Work
[2020-04-01] MEDS: ALBUTEROL SO4 2.5/IPRATROPIUM 0.5 INH SOL 3 ML VIAL.NEB. NEB SCH ×3 (17:13→17:36)
--- NOTE | 2020-04-01 17:20 | PDOC ---
Attending Attestation - Resident Resident Name: Isabelle Rios - ED Attending Attestation I have performed the following: I have examined & evaluated the patient, The case was reviewed & discussed with the resident, I agree w/resident's findings & plan, Exceptions are as noted - HPI HPI: 04/01/20 17:19 24 yo female with history of asthma and environmental allergies p/w wheezing - Physicial Exam PE: 04/01/20 17:20 obese 24 yo female speaking in full sentences head ncat neck supple cvs [id number] lungs expiratory wheezing abdomen protuberant skin warm and dry extremities no edema neuro axox3,ambulatory - Medical Decision Making 04/01/20 17:23 plan decadron/resp treatments 04/01/20 18:36 pt's lungs are cta b/l RX Symbicort plan: d/c with short prednisone taper follow up with PCP 04/01/20 18:42 Discharge - Discharge Information Problems reviewed: Yes Clinical Impression/Diagnosis: Shortness of breath Asthma attack Qualifiers: Asthma severity: mild Asthma persistence: persistent Qualified Code(s): J45.31 - Mild persistent asthma with (acute) exacerbation Condition: Stable Disposition: HOME - Additional Discharge Information Prescriptions: Prednisone [Prednisone 50 MG TABLETS] 50 mg PO DAILY 5 Days #5 tablet Budesonide/Formeterol Fumarate [SYMBICORT 160/4.5mcg -] 2 puff IH BID #1 inhaler Budesonide/Formeterol Fumarate [SYMBICORT 80/4.5mcg -] 2 puff PO BID #1 cannister - Follow up/Referral Referrals: Benjamin Marquez MD [Primary Care Provider] - - Patient Discharge Instructions Patient Printed Discharge Instructions: DI for Asthma -- Adult Additional Instructions: You came into the ER shortness of breath. We did a physical exam, gave you a breathing treatment (duoneb) and steroids. As discussed, please make sure to follow up with your primary care doctor within the next week. Come back to the ER immediately with any new or worsening concerns, such as increasing shortness of breath, you do not feel better with albuterol, or if you have chest pain or fevers. Thank you for coming to the [facility] ER We hope you feel better soon! - Post Discharge Activity Work/Back to School Note: Back to Work
[2020-04-01 18:55] VITALS: BP 140/90; PULSE 107
== END 2020-04-01 18:55 | disposition home or self-care (01) ==
LOC: JER 16:10
PROC: 3E0F7GC Introduction of Other Therapeutic Substance into Respiratory Tract, Via Natural or Artificial Opening (ICD-10-PCS; principal; 2020-04-01)
PROC: 3E033GC Introduction of Other Therapeutic Substance into Peripheral Vein, Percutaneous Approach (ICD-10-PCS; 2020-04-01)
DX: J45.31 Mild persistent asthma with (acute) exacerbation (principal)
CPT/HCPCS: 99285-25; J1100

== ENCOUNTER 2020-09-09 12:47 | Emergency (ER) | payer OTHER ==
[2020-09-09 12:59] VITALS: TEMP 98.7; BMI 48.4
[2020-09-09] MEDS ORDERED: methylPREDNISolone NA SUCC 125 MG/2 ML VIAL IVPUSH ONE (14:06)
[2020-09-09] MEDS ORDERED: MAGNESIUM SULF 50% (8.12 MEQ/2 ML-1 GM VIAL) IVPB ONE (14:07)
[2020-09-09] MEDS ORDERED: methylPREDNISolone NA SUCC 125 MG/2 ML VIAL ONE (14:40)
[2020-09-09] MEDS ORDERED: ALBUTEROL SO4 2.5/IPRATROPIUM 0.5 INH SOL 3 ML VIAL.NEB. NEB ONE ×2 (14:40→16:52)
[2020-09-09] MEDS ORDERED: MAGNESIUM SULFATE IN WATER 2 GM/50 ML IVPB IVPB ONE (14:41)
[2020-09-09] MEDS: ALBUTEROL SO4 2.5/IPRATROPIUM 0.5 INH SOL 3 ML VIAL.NEB. NEB SCH ×2 (14:56→16:53)
[2020-09-09 17:06] LABS: BASO % 1.2 % (0-2.0); HEMATOCRIT 44.8 % (32.4-45.2); HEMOGLOBIN 14.6 GM/dL (10.7-15.3); LYMPH % 32.2 % (8-40); MCH 27.6 pg (25.7-33.7); MCHC 32.7 g/dl (32.0-36.0); MEAN CELL VOLUME 84.3 fl (80-96); MEAN PLT VOLUME 8.7 fl (7.5-11.1); MONO % 8.6 % (3.8-10.2); PLATELET COUNT 421 K/MM3 (134-434); RBC 5.31 M/mm3 (3.60-5.2); RDW 14.8 % (11.6-15.6); WHITE BLOOD COUNT 6.5 K/mm3 (4.0-10.0)
[2020-09-09 17:33] LABS: ALBUMIN 3.9 g/dl (3.4-5.0); BLOOD UREA NITROGEN 9.6 mg/dL (7-18)
[2020-09-09 17:36] LABS: CREATININE 0.6 mg/dL (0.55-1.3)
[2020-09-09 17:38] LABS: BILIRUBIN,TOTAL 0.6 mg/dL (0.2-1); TOT PROT 7.8 g/dl (6.4-8.2)
[2020-09-09 18:11] VITALS: BP 139/84; PULSE 113
== END 2020-09-09 18:11 | disposition home or self-care (01) ==
LOC: JER 12:47
PROC: 3E0F7GC Introduction of Other Therapeutic Substance into Respiratory Tract, Via Natural or Artificial Opening (ICD-10-PCS; principal; 2020-09-09)
PROC: 3E033GC Introduction of Other Therapeutic Substance into Peripheral Vein, Percutaneous Approach (ICD-10-PCS; principal; 2020-09-09)
DX: J45.901 Unspecified asthma with (acute) exacerbation (principal)
CPT/HCPCS: 36415; 71046-TC-FY; 80053; 85025; 99284-25; C9803; U0003

== ENCOUNTER 2020-11-04 14:09 | Emergency (ER) | payer OTHER ==
[2020-11-04 14:36] VITALS: BP 140/77; PULSE 96; TEMP 98.3; BMI 48.4
== END 2020-11-04 16:45 | disposition home or self-care (01) ==
LOC: JERFT 14:09 → JER 14:09 → JERFT 16:45
DX: J45.21 Mild intermittent asthma with (acute) exacerbation (principal)
CPT/HCPCS: 99282-25

== ENCOUNTER 2023-04-18 00:15 | Observation (INO) | payer SELFPAY ==
[2023-04-18] MEDS ORDERED: ALBUTEROL SO4 2.5/IPRATROPIUM 0.5 INH SOL 3 ML VIAL.NEB. NEB ONE (00:20)
[2023-04-18] MEDS ORDERED: EPINEPHrine/PF 1 MG/1 ML (1:1,000) AMPULE ONE (00:20)
[2023-04-18] MEDS ORDERED: methylPREDNISolone NA SUCC 125 MG/2 ML VIAL ONE (00:22)
[2023-04-18 00:25] VITALS: BMI 46.4
[2023-04-18] MEDS ORDERED: EPINEPHrine 1:1,000 0.3 MG/0.3 ML SYR IM ONE (00:35)
[2023-04-18] MEDS ORDERED: methylPREDNISolone NA SUCC 125 MG/2 ML VIAL IVPUSH ONE (00:35)
[2023-04-18] MEDS ORDERED: FAMOTIDINE 20 MG TABLET PO ONE (00:35)
[2023-04-18] MEDS: ALBUTEROL SO4 2.5/IPRATROPIUM 0.5 INH SOL 3 ML VIAL.NEB. NEB SCH ×2 (00:40→00:44)
[2023-04-18] MEDS ORDERED: FAMOTIDINE 20 MG TABLET ONE (00:47)
[2023-04-18 02:46] LABS: HEMOGLOBIN 12.5 GM/dL (10.7-15.3); MCH 27.2 pg (25.7-33.7); MCHC 32.9 g/dl (32.0-36.0); MEAN CELL VOLUME 82.5 fl (80-96); MEAN PLT VOLUME 7.7 fl (7.5-11.1); PLATELET COUNT 377 10^3/uL (134-434); RBC 4.61 M/mm3 (3.60-5.2); RDW 15.3 % (11.6-15.6); WHITE BLOOD COUNT 7.3 K/mm3 (4.0-10.0)
[2023-04-18 03:04] LABS: POTASSIUM 3.9 mmol/L (3.5-5.1)
[2023-04-18 03:07] LABS: BLOOD UREA NITROGEN 6.5 mg/dL (7-18)
[2023-04-18 03:10] LABS: CREATININE 0.7 mg/dL (0.55-1.3)
[2023-04-18 03:11] LABS: TOT PROT 6.1 g/dl (6.4-8.2)
[2023-04-18 03:13] LABS: BILIRUBIN,TOTAL 0.3 mg/dL (0.2-1)
[2023-04-18] MEDS ORDERED: SODIUM CHLORIDE 0.9% 500 ML INFUS.BAG IV ONE (03:33)
[2023-04-18 03:54] VITALS: RESP 18
[2023-04-18] MEDS ORDERED: ACETAMINOPHEN 325 MG TABLET (FP) PO PRN (09:14)
[2023-04-18] MEDS ORDERED: diphenhydrAMINE HCL 25 MG CAPSULE (FP) PO PRN (09:17)
[2023-04-18 10:50] VITALS: BP 125/76; PULSE 105; TEMP 98.2
== END 2023-04-18 12:03 | disposition home or self-care (01) ==
LOC: JER 00:15 → JERBED 05:30
PROVIDERS: ADMIT Internal Medicine; ATTEND Internal Medicine
PROC: 3E0F7GC Introduction of Other Therapeutic Substance into Respiratory Tract, Via Natural or Artificial Opening (ICD-10-PCS; principal; 2023-04-18)
PROC: 3E033GC Introduction of Other Therapeutic Substance into Peripheral Vein, Percutaneous Approach (ICD-10-PCS; 2023-04-18)
PROC: 3E023GC Introduction of Other Therapeutic Substance into Muscle, Percutaneous Approach (ICD-10-PCS; 2023-04-18)
PROC: 3E0337Z Introduction of Electrolytic and Water Balance Substance into Peripheral Vein, Percutaneous Approach (ICD-10-PCS; 2023-04-18)
DX: R06.00 Dyspnea, unspecified (principal); R73.9 Hyperglycemia, unspecified; R21 Rash and other nonspecific skin eruption; J45.909 Unspecified asthma, uncomplicated; Z88.0 Allergy status to penicillin; Z88.8 Allergy status to other drugs, medicaments and biological substances; Z91.018 Allergy to other foods
CPT/HCPCS: 36415; 80053; 83036; 85027; 93005; 93010; 99285-25; G0378; J0171

== ENCOUNTER 2023-04-21 12:02 | Emergency (ER) | payer SELFPAY ==
[2023-04-21 12:07] VITALS: RESP 18; TEMP 98.1
[2023-04-21 13:58] VITALS: BP 132/70; PULSE 85
[2023-04-21] MEDS ORDERED: diphenhydrAMINE HCL 50 MG CAPSULE PO ONE (14:10)
[2023-04-21] MEDS ORDERED: DEXAMETHASONE 4 MG TABLET (FP) PO ONE (14:10)
[2023-04-21] MEDS ORDERED: FAMOTIDINE 10 MG TABLET PO ONE (14:12)
[2023-04-21] MEDS ORDERED: FAMOTIDINE 10 MG TABLET ONE (14:35)
[2023-04-21] MEDS ORDERED: diphenhydrAMINE HCL 25 MG CAPSULE (FP) PO ONE (14:35)
[2023-04-21] MEDS ORDERED: DEXAMETHASONE 4 MG TABLET (FP) ONE (14:35)
== END 2023-04-21 16:30 | disposition home or self-care (01) ==
LOC: JER 12:02
DX: L30.9 Dermatitis, unspecified (principal); L29.9 Pruritus, unspecified; R60.0 Localized edema; R21 Rash and other nonspecific skin eruption
CPT/HCPCS: 99283-25

== ENCOUNTER 2023-05-06 18:31 | Observation (INO) | payer SELFPAY ==
[2023-05-06] MEDS ORDERED: MAG HYDROX/AL HYDROX/SIMETH 30 ML UNIT-DOSE CUP ONE (18:56)
[2023-05-06] MEDS ORDERED: SODIUM CHLORIDE 0.9% 500 ML INFUS.BAG IV ONE (19:52)
[2023-05-06] MEDS ORDERED: ACETAMINOPHEN 1000 MG/100 ML BAG IVPB ONE (19:56)
[2023-05-06] MEDS ORDERED: ACETAMINOPHEN INJECTION 100 ML IVPB ONE (20:10)
[2023-05-06 20:43] LABS: BASO % 0.7 % (0-2.0); EOS % 13.6 % (0-4.5); HEMATOCRIT 40.3 % (32.4-45.2); HEMOGLOBIN 13.3 GM/dL (10.7-15.3); LYMPH % 21.6 % (8-40); MCH 27.3 pg (25.7-33.7); MEAN CELL VOLUME 82.8 fl (80-96); MEAN PLT VOLUME 7.9 fl (7.5-11.1); MONO % 5.9 % (3.8-10.2); NEUT % 58.2 % (42.8-82.8); PLATELET COUNT 427 10^3/uL (134-434); RBC 4.87 M/mm3 (3.60-5.2); RDW 15.6 % (11.6-15.6); WHITE BLOOD COUNT 8.7 K/mm3 (4.0-10.0)
[2023-05-06 20:53] LABS: INR 1.05 (0.83-1.09); PROTHROMBIN TIME (PATIENT) 12.2 SEC (9.7-13.0)
[2023-05-06 20:55] LABS: ACTIVATED PTT 31.1 SECONDS (25.2-36.5)
[2023-05-06 20:56] LABS: POTASSIUM 3.8 mmol/L (3.5-5.1)
[2023-05-06 20:58] LABS: CALCIUM 8.7 mg/dL (8.5-10.1)
[2023-05-06 20:59] LABS: ALBUMIN 3.5 g/dl (3.4-5.0); BLOOD UREA NITROGEN 8.8 mg/dL (7-18); MAGNESIUM 2.3 mg/dL (1.8-2.4)
[2023-05-06 21:02] LABS: CREATININE 0.7 mg/dL (0.55-1.3)
[2023-05-06 21:03] LABS: BILIRUBIN,TOTAL 0.4 mg/dL (0.2-1); TOT PROT 6.8 g/dl (6.4-8.2)
[2023-05-06] MEDS ORDERED: methylPREDNISolone NA SUCC 125 MG/2 ML VIAL IVPUSH ONE (21:06)
[2023-05-06] MEDS ORDERED: methylPREDNISolone NA SUCC 125 MG/2 ML VIAL ONE (21:19)
[2023-05-06 22:12] LABS: ERYTHROCYTE SEDIMENTATION RATE 8 mm/hr (0-20)
[2023-05-07 03:40] VITALS: BMI 50.8
[2023-05-07] MEDS ORDERED: ENOXAPARIN NA (PORCINE) 40 MG/0.4 ML DISP.SYRIN SQ SCH (10:00)
[2023-05-07] MEDS ORDERED: BETAMETHASONE DIPR 0.05% OINT 45 GM TUBE TP SCH (10:00)
[2023-05-07] MEDS: BETAMETHASONE DIPR 0.05% OINT 45 GM TUBE TP SCH ×2 (10:10→22:14)
[2023-05-07 13:56] LABS: HEMATOCRIT 36.6 % (32.4-45.2); HEMOGLOBIN 11.9 GM/dL (10.7-15.3); MCH 27.2 pg (25.7-33.7); MCHC 32.6 g/dl (32.0-36.0); MEAN CELL VOLUME 83.4 fl (80-96); MEAN PLT VOLUME 8.5 fl (7.5-11.1); PLATELET COUNT 381 10^3/uL (134-434); RBC 4.39 M/mm3 (3.60-5.2); WHITE BLOOD COUNT 9.5 K/mm3 (4.0-10.0)
[2023-05-07 14:10] LABS: CHLORIDE 113 mmol/L (98-107); POTASSIUM 3.9 mmol/L (3.5-5.1); SODIUM 144 mmol/L (136-145)
[2023-05-07 14:12] LABS: ANION GAP 7 MMOL/L (8-16); CALCIUM 8.7 mg/dL (8.5-10.1); CO2 24 mmol/L (21-32); GLUCOSE,RANDOM 140 mg/dL (74-106)
[2023-05-07 14:16] LABS: CREATININE 0.6 mg/dL (0.55-1.3); SGOT/AST 18 U/L (15-37); SGPT/ALT 26 U/L (13-61)
[2023-05-07 14:17] LABS: BILIRUBIN,TOTAL 0.3 mg/dL (0.2-1); TOT PROT 6.2 g/dl (6.4-8.2)
[2023-05-07 14:18] LABS: ALK PHOS 84 U/L (45-117)
[2023-05-07 14:46] LABS: ERYTHROCYTE SEDIMENTATION RATE 13 mm/hr (0-20)
[2023-05-07 15:51] VITALS: RESP 16
[2023-05-08 08:50] VITALS: BP 144/85; PULSE 88; TEMP 97.9
[2023-05-08] MEDS: BETAMETHASONE DIPR 0.05% OINT 45 GM TUBE TP SCH (09:31)
[2023-05-08 20:08] LABS: CYCLIC CITRULLINE PEPTIDE AB 2 units (0-19)
[2023-05-11 16:08] LABS: ATYPICAL pANCA <1:20 titer (Neg:<1:20); C-ANCA <1:20 titer (Neg:<1:20)
== END 2023-05-08 11:24 | disposition home or self-care (01) ==
LOC: JER 18:31 → JERBED 22:47 → J6S 05-07 01:47
PROVIDERS: ADMIT Internal Medicine; ATTEND Internal Medicine
PROC: 3E033NZ Introduction of Analgesics, Hypnotics, Sedatives into Peripheral Vein, Percutaneous Approach (ICD-10-PCS; principal; 2023-05-06)
PROC: 3E033GC Introduction of Other Therapeutic Substance into Peripheral Vein, Percutaneous Approach (ICD-10-PCS; 2023-05-06)
PROC: 3E0337Z Introduction of Electrolytic and Water Balance Substance into Peripheral Vein, Percutaneous Approach (ICD-10-PCS; 2023-05-06)
DX: L30.9 Dermatitis, unspecified (principal); J45.909 Unspecified asthma, uncomplicated; R21 Rash and other nonspecific skin eruption; R79.9 Abnormal finding of blood chemistry, unspecified; Z88.0 Allergy status to penicillin; Z88.8 Allergy status to other drugs, medicaments and biological substances
CPT/HCPCS: 36415; 71045-TC-FY; 80053; 82550; 83520; 83735; 84443; 84484; 84703; 85025; 85027; 85610; 85651; 85730; 86038; 86140; 86200; 86256; 86431; 87389; 93005; 93010; 99285-25; G0378

== ENCOUNTER 2023-07-31 21:33 | Emergency (ER) | payer BC ==
[2023-07-31] MEDS ORDERED: methylPREDNISolone NA SUCC 125 MG/2 ML VIAL ONE (21:37)
[2023-07-31] MEDS ORDERED: MAGNESIUM SULFATE IN WATER 2 GM/50 ML IVPB IVPB ONE ×3 (21:40→22:13)
[2023-07-31] MEDS ORDERED: methylPREDNISolone NA SUCC 125 MG/2 ML VIAL IVPUSH ONE (21:40)
[2023-07-31] MEDS ORDERED: ALBUTEROL SO4 2.5/IPRATROPIUM 0.5 INH SOL 3 ML VIAL.NEB. NEB ONE (21:40)
[2023-07-31 21:47] VITALS: TEMP 98.1; BMI 48.4
[2023-07-31 23:13] VITALS: BP 138/73; PULSE 93; RESP 14
== END 2023-07-31 23:40 | disposition home or self-care (01) ==
LOC: JER 21:33
PROC: 3E033GC Introduction of Other Therapeutic Substance into Peripheral Vein, Percutaneous Approach (ICD-10-PCS; principal; 2023-07-31)
PROC: 3E033GC Introduction of Other Therapeutic Substance into Peripheral Vein, Percutaneous Approach (ICD-10-PCS; 2023-07-31)
PROC: 3E0F7GC Introduction of Other Therapeutic Substance into Respiratory Tract, Via Natural or Artificial Opening (ICD-10-PCS; 2023-07-31)
DX: J45.901 Unspecified asthma with (acute) exacerbation (principal); I10 Essential (primary) hypertension; R00.0 Tachycardia, unspecified; R06.82 Tachypnea, not elsewhere classified; R09.02 Hypoxemia
CPT/HCPCS: 0241U-QW; 99284-25

== ENCOUNTER 2023-09-27 09:02 | Emergency (ER) | payer BC ==
[2023-09-27 09:11] VITALS: BP 134/88; PULSE 96; RESP 20; TEMP 100; BMI 50.5
[2023-09-27] MEDS ORDERED: predniSONE 20 MG TABLET (UD) PO ONE (10:35)
[2023-09-27] MEDS ORDERED: ALBUTEROL SO4 2.5/IPRATROPIUM 0.5 INH SOL 3 ML VIAL.NEB. NEB ONE ×2 (10:35→10:48)
[2023-09-27] MEDS ORDERED: predniSONE 20 MG TABLET (UD) ONE (10:49)
== END 2023-09-27 14:18 | disposition home or self-care (01) ==
LOC: JERFT 09:02
PROC: 3E0F7GC Introduction of Other Therapeutic Substance into Respiratory Tract, Via Natural or Artificial Opening (ICD-10-PCS; principal; 2023-09-27)
DX: R07.89 Other chest pain (principal); R06.02 Shortness of breath; J45.909 Unspecified asthma, uncomplicated; Z20.822 Contact with and (suspected) exposure to COVID-19
CPT/HCPCS: 0241U-QW; 71046-TC-FY; 84703; 99284-25

== ENCOUNTER 2024-02-17 17:30 | Emergency (ER) | payer BC ==
[2024-02-17 17:43] VITALS: BP 125/73; PULSE 84; RESP 18; TEMP 98; BMI 52.4
[2024-02-17] MEDS ORDERED: ACETAMINOPHEN INJECTION 100 ML IVPB ONE (18:26)
[2024-02-17] MEDS: ACETAMINOPHEN 1000 MG/100 ML BAG IVPB ONE (18:51)
[2024-02-17 19:01] LABS: EOS % 4.6 % (0-4.5); HEMATOCRIT 40.7 % (32.4-45.2); HEMOGLOBIN 13.3 GM/dL (10.7-15.3); MCH 27.2 pg (25.7-33.7); MCHC 32.8 g/dl (32.0-36.0); MEAN CELL VOLUME 82.8 fl (80-96); MEAN PLT VOLUME 7.9 fl (7.5-11.1); MONO % 8.2 % (3.8-10.2); NEUT % 55.2 % (42.8-82.8); PLATELET COUNT 480 10^3/uL (134-434); RBC 4.91 M/mm3 (3.60-5.2); RDW 14.9 % (11.6-15.6); WHITE BLOOD COUNT 9.3 K/mm3 (4.0-10.0)
[2024-02-17 19:17] LABS: INR 1.02 (0.83-1.09); PROTHROMBIN TIME (PATIENT) 11.5 SEC (9.7-13.0)
[2024-02-17 19:19] LABS: POTASSIUM 4.7 mmol/L (3.5-5.1)
[2024-02-17 19:20] LABS: ACTIVATED PTT 34.5 SECONDS (25.2-36.5)
[2024-02-17 19:21] LABS: ALBUMIN 3.6 g/dl (3.4-5.0); BLOOD UREA NITROGEN 14.2 mg/dL (7-18); CALCIUM 9.2 mg/dL (8.5-10.1)
[2024-02-17 19:25] LABS: CREATININE 0.7 mg/dL (0.55-1.3)
[2024-02-17 19:26] LABS: BILIRUBIN,TOTAL 0.4 mg/dL (0.2-1); TOT PROT 7.8 g/dl (6.4-8.2)
[2024-02-17 21:43] LABS: PH,URINE 5.5 (5.0-8.0); URINE APPEARANCE CLEAR; URINE BILIRUBIN NEGATIVE (NEGATIVE); URINE COLOR YELLOW; URINE GLUCOSE (UA) NEGATIVE (NEGATIVE); URINE KETONE TRACE (NEGATIVE); URINE LEUK ESTERASE NEGATIVE (NEGATIVE); URINE NITRITE NEGATIVE (NEGATIVE); URINE PROTEIN TRACE (NEGATIVE); URINE UROBILINOGEN 0.2 mg/dL (0.2-1.0)
== END 2024-02-18 00:31 | disposition home or self-care (01) ==
LOC: JER 17:30
PROC: 3E033NZ Introduction of Analgesics, Hypnotics, Sedatives into Peripheral Vein, Percutaneous Approach (ICD-10-PCS; principal; 2024-02-17)
DX: R10.32 Left lower quadrant pain (principal); R11.2 Nausea with vomiting, unspecified
CPT/HCPCS: 36415; 76817-TC; 80053; 81003; 84702; 84703; 85025; 85610; 85730; 86850; 86900; 86901; 87070; 87077; 87086; 87205; 87491; 87591; 87661; 99284-25; J0131

== ENCOUNTER 2024-02-19 08:47 | Emergency (ER) | payer BC ==
[2024-02-19 08:55] VITALS: BP 129/72; PULSE 96; RESP 20; TEMP 99.6; BMI 52.4
== END 2024-02-19 11:00 | disposition home or self-care (01) ==
LOC: JERFT 08:47
DX: O26.891 Other specified pregnancy related conditions, first trimester (principal); R10.32 Left lower quadrant pain; Z3A.01 Less than 8 weeks gestation of pregnancy
CPT/HCPCS: 36415; 84702; 99283-25

== ENCOUNTER 2024-02-21 07:16 | Emergency (ER) | payer BC ==
[2024-02-21 07:43] VITALS: BP 133/82; PULSE 85; RESP 18; TEMP 98; BMI 52.4
== END 2024-02-21 10:25 | disposition home or self-care (01) ==
LOC: JER 07:16
DX: O23.599 Infection of other part of genital tract in pregnancy, unspecified trimester (principal); Z3A.00 Weeks of gestation of pregnancy not specified
CPT/HCPCS: 36415; 84702; 99283-25

== ENCOUNTER 2024-04-03 08:28 | Emergency (ER) | payer BC ==
[2024-04-03] MEDS ORDERED: ALBUTEROL SO4 2.5/IPRATROPIUM 0.5 INH SOL 3 ML VIAL.NEB. NEB ONE (09:29)
[2024-04-03] MEDS: ALBUTEROL SO4 2.5/IPRATROPIUM 0.5 INH SOL 3 ML VIAL.NEB. NEB ONE (09:32)
[2024-04-03 09:42] VITALS: BP 111/83; PULSE 103; RESP 18; TEMP 98.3; BMI 55.1
[2024-04-03] MEDS ORDERED: DEXAMETHASONE SOD PHOSPHATE 10 MG/1 ML VIAL ONE (09:55)
[2024-04-03] MEDS: DEXAMETHASONE LIQUID 0.5 MG/5 ML PO ONE (09:59)
== END 2024-04-03 12:13 | disposition home or self-care (01) ==
LOC: JER 08:28
PROC: 3E0F7GC Introduction of Other Therapeutic Substance into Respiratory Tract, Via Natural or Artificial Opening (ICD-10-PCS; principal; 2024-04-03)
DX: O99.511 Diseases of the respiratory system complicating pregnancy, first trimester (principal); J45.909 Unspecified asthma, uncomplicated; O99.891 Other specified diseases and conditions complicating pregnancy; R06.02 Shortness of breath; R05.9 Cough, unspecified; R09.81 Nasal congestion; O26.891 Other specified pregnancy related conditions, first trimester; R11.0 Nausea; Z3A.10 10 weeks gestation of pregnancy; Z20.822 Contact with and (suspected) exposure to COVID-19
CPT/HCPCS: 0241U-QW; 93005; 93010; 99284-25

== ENCOUNTER 2024-05-20 05:44 | Emergency (ER) | payer BC ==
[2024-05-20] MEDS: ALBUTEROL SO4 2.5/IPRATROPIUM 0.5 INH SOL 3 ML VIAL.NEB. NEB SCH (05:50)
[2024-05-20 05:51] VITALS: BP 152/84; PULSE 99; RESP 20; TEMP 98.1; BMI 56.7
[2024-05-20] MEDS ORDERED: ALBUTEROL SO4 2.5/IPRATROPIUM 0.5 INH SOL 3 ML VIAL.NEB. NEB ONE (05:52)
[2024-05-20] MEDS ORDERED: ALBUTEROL SO4 HFA INHALER IH PRN (06:01)
[2024-05-20] MEDS ORDERED: ALBUTEROL SO4 HFA INHALER IH ONE (06:46)
[2024-05-20] MEDS: DEXAMETHASONE 4 MG TABLET (FP) PO ONE (07:05)
[2024-05-20] MEDS ORDERED: DEXAMETHASONE SOD PHOSPHATE 10 MG/1 ML VIAL ONE (07:06)
[2024-05-20] MEDS: DEXAMETHASONE LIQUID 0.5 MG/5 ML PO ONE (07:08)
[2024-05-20] MEDS: ALBUTEROL SO4 0.042% IH SOL 1.25 MG/3 ML VIAL.NEB NEB ONE (07:45)
== END 2024-05-20 07:46 | disposition home or self-care (01) ==
LOC: JER 05:44
DX: O99.512 Diseases of the respiratory system complicating pregnancy, second trimester (principal); J45.901 Unspecified asthma with (acute) exacerbation; Z3A.17 17 weeks gestation of pregnancy
CPT/HCPCS: 99283-25

== ENCOUNTER 2025-01-02 21:01 | Emergency (ER) | payer BC ==
[2025-01-02 21:07] VITALS: BP 125/77; PULSE 92; RESP 22; TEMP 98.3; BMI 54.5
[2025-01-02] MEDS ORDERED: ALBUTEROL SO4 2.5/IPRATROPIUM 0.5 INH SOL 3 ML VIAL.NEB. NEB ONE (21:10)
[2025-01-02] MEDS: ALBUTEROL SO4 2.5/IPRATROPIUM 0.5 INH SOL 3 ML VIAL.NEB. NEB ONE (21:22)
[2025-01-02] MEDS ORDERED: predniSONE 20 MG TABLET (UD) ONE (21:37)
[2025-01-02] MEDS: predniSONE 20 MG TABLET (UD) PO ONE (22:01)
[2025-01-02 22:33] LABS: ABSOLUTE IMMATURE GRANULOCYTES 0.01 x10^3/uL (0.0-0.031); BASOPHILS # 0.11 x10^3/uL (0.01-0.08); EOSINOPHIL % 5.2 % (0.7-5.8); EOSINOPHILS # 0.41 x10^3/uL (0.04-0.36); HEMATOCRIT 42.4 % (34.1-44.9); MCHC 30.7 g/dl (32.2-35.5); MEAN CELL VOLUME 84.3 fl (79.4-94.8); MONOCYTE # 0.56 x10^3/uL (0.24-0.86); PLATELET COUNT 453 x10^3/uL (182-369); RDW 14.6 % (12.1-16.5)
[2025-01-02 22:58] LABS: ALBUMIN 3.6 g/dl (3.4-5.0); BLOOD UREA NITROGEN 18.8 mg/dL (7-18); CALCIUM 9.1 mg/dL (8.5-10.1)
[2025-01-02 23:01] LABS: CREATININE 0.8 mg/dL (0.55-1.3)
[2025-01-02 23:03] LABS: BILIRUBIN,TOTAL 0.3 mg/dL (0.2-1); TOT PROT 7.5 g/dl (6.4-8.2)
[2025-01-02 23:50] LABS: HCV DIAGNOSTIC IN-HOUSE W/RFLX NON-REACTIVE (NONREACTIVE); HIV INTERPRETATION NEGATIVE (NEGATIVE)
== END 2025-01-02 23:19 | disposition home or self-care (01) ==
LOC: JER 21:01
PROC: 3E0F7GC Introduction of Other Therapeutic Substance into Respiratory Tract, Via Natural or Artificial Opening (ICD-10-PCS; principal; 2025-01-02)
DX: J45.909 Unspecified asthma, uncomplicated (principal); N93.9 Abnormal uterine and vaginal bleeding, unspecified; R06.00 Dyspnea, unspecified
CPT/HCPCS: 0241U-QW; 36415; 71045-TC-FY; 80053; 85025; 86803; 87389; 99284-25

== ENCOUNTER 2025-06-11 15:40 | Emergency (ER) | payer BC ==
[2025-06-11 15:48] VITALS: BP 130/84; PULSE 103; RESP 18; TEMP 98.2; BMI 56.5
[2025-06-11] MEDS ORDERED: CLINDAMYCIN 600MG PREMIX IVPB 600 MG/50 ML BAG IVPB ONE (17:29)
[2025-06-11] MEDS ORDERED: DEXAMETHASONE SOD PHOSPHATE 10 MG/1 ML VIAL ONE (17:29)
[2025-06-11] MEDS ORDERED: FAMOTIDINE 20 MG/50 ML IVPB 20 MG/50 ML MG IVPB ONE (17:30)
[2025-06-11] MEDS: DEXAMETHASONE SOD PHOSPHATE 10 MG/1 ML VIAL IVPUSH ONE (18:40)
[2025-06-11] MEDS: methylPREDNISolone NA SUCC 125 MG/2 ML VIAL IVPB ONE (18:40)
[2025-06-11] MEDS: FAMOTIDINE 20 MG/50 ML IVPB 20 MG/50 ML MG IVPB ONE (18:40)
[2025-06-11] MEDS: CLINDAMYCIN 600MG PREMIX IVPB 600 MG/50 ML BAG IVPB ONE (18:50)
== END 2025-06-11 19:10 | disposition home or self-care (01) ==
LOC: JERFT 15:40
PROC: 3E033GC Introduction of Other Therapeutic Substance into Peripheral Vein, Percutaneous Approach (ICD-10-PCS; principal; 2025-06-11)
PROC: 3E03329 Introduction of Other Anti-infective into Peripheral Vein, Percutaneous Approach (ICD-10-PCS; 2025-06-11)
PROC: 3E033GC Introduction of Other Therapeutic Substance into Peripheral Vein, Percutaneous Approach (ICD-10-PCS; 2025-06-11)
PROC: 3E033GC Introduction of Other Therapeutic Substance into Peripheral Vein, Percutaneous Approach (ICD-10-PCS; 2025-06-11)
DX: R21 Rash and other nonspecific skin eruption (principal); L29.9 Pruritus, unspecified; L50.9 Urticaria, unspecified
CPT/HCPCS: 99284-25; J1100